=== PATIENT | male | born 1930 | race Caucasian/White ===

== ENCOUNTER 2018-11-24 15:40 | Inpatient (IN) | payer MEDICARE ==
[2018-11-24] MEDS ORDERED: HEPARIN SODIUM,PORCINE 5,000 UNIT/ML 1 ML VIAL IV ONE (18:55)
[2018-11-24] MEDS ORDERED: HEPARIN SODIUM,PORCINE 5,000 UNIT/ML 1 ML VIAL IV PRN (18:55)
[2018-11-24] MEDS ORDERED: hydrALAZINE HCL 20 MG/ML 1 ML VIAL IVP STA (18:56)
[2018-11-24] MEDS: HEPARIN SOD,PORK IN 0.45% NACL 25,000 UNIT in 0.45% NACL 1 250ML.BAG IV SCH (19:17)
[2018-11-24 19:31] LABS: Basophils % (A) 1 %; Eosinophils # (A) 0.2 k/uL (0-0.7); Eosinophils % (A) 3 %; HCT 46.8 % (39.0-53.0); HGB 14.4 gm/dL (13.0-17.5); Hypochromasia Slight; Lymphocytes # (A) 1.6 k/uL (1.0-4.8); Lymphocytes % (A) 22 %; MCH 28.1 pg (25.0-35.0); MCHC 30.8 g/dL (31.0-37.0); MCV 91.1 fL (80.0-100.0); Mean Platelet Volume 8.5; Monocytes # (A) 0.5 k/uL (0-1.0); Monocytes % (A) 7 %; Neutrophils # (A) 4.7 k/uL (1.3-7.7); Neutrophils % (A) 65 %; Platelet Count 197 k/uL (150-450); RBC 5.13 m/uL (4.30-5.90); RDW 13.8 % (11.5-15.5); WBC 7.2 k/uL (3.8-10.6)
[2018-11-24 19:46] LABS: ALT 24 U/L (21-72); AST 26 U/L (17-59); African American GFR (CKD) >90 (>60 ml/min/1.73 sqM); Albumin 3.5 g/dL (3.5-5.0); Alkaline Phosphatase 116 U/L (38-126); Anion Gap 6 mmol/L; Blood Urea Nitrogen 10 mg/dL (9-20); Calcium 8.9 mg/dL (8.4-10.2); Carbon Dioxide 30 mmol/L (22-30); Chloride 103 mmol/L (98-107); Glucose 124 mg/dL (74-99); Potassium 3.9 mmol/L (3.5-5.1); Sodium 139 mmol/L (137-145); Total Bilirubin 0.9 mg/dL (0.2-1.3); Total Protein 6.5 g/dL (6.3-8.2)
[2018-11-24 19:47] LABS: INR 0.9 (<1.2); Partial Thromboplastin Time 67.6 sec (22.0-30.0); Prothrombin Time 10.1 sec (9.0-12.0)
[2018-11-24] MEDS ORDERED: MELATONIN 5 MG TABLET PO PRN (20:56)
[2018-11-24] MEDS: DORZOLAMIDE HCL 2% DROPS 10 ML BTL BOTH EYES SCH (21:06)
[2018-11-24] MEDS: BRIMONIDINE TARTRATE 0.2% DROPS 5 ML BTL BOTH EYES SCH (21:06)
[2018-11-24] MEDS: LATANOPROST 0.005% OPHTH DROPS 2.5 ML BTL BOTH EYES SCH (21:06)
[2018-11-24] MEDS: TIMOLOL 0.5% OPHTH DROPS 5 ML BTL BOTH EYES SCH (21:06)
[2018-11-25 05:54] LABS: Basophils % (A) 0 %; Eosinophils # (A) 0.2 k/uL (0-0.7); Eosinophils % (A) 3 %; HCT 45.4 % (39.0-53.0); HGB 13.9 gm/dL (13.0-17.5); Lymphocytes # (A) 1.6 k/uL (1.0-4.8); Lymphocytes % (A) 23 %; MCH 27.8 pg (25.0-35.0); MCHC 30.7 g/dL (31.0-37.0); MCV 90.6 fL (80.0-100.0); Mean Platelet Volume 7.9; Monocytes # (A) 0.5 k/uL (0-1.0); Monocytes % (A) 8 %; Neutrophils # (A) 4.5 k/uL (1.3-7.7); Neutrophils % (A) 64 %; Platelet Count 181 k/uL (150-450); RBC 5.01 m/uL (4.30-5.90); RDW 13.9 % (11.5-15.5); WBC 7.1 k/uL (3.8-10.6)
[2018-11-25] MEDS ORDERED: PANTOPRAZOLE 40 MG TABLET PO SCH (07:30)
[2018-11-25] MEDS: LISINOPRIL 20 MG TAB PO SCH (08:43)
[2018-11-25] MEDS: ATORVASTATIN 80 MG TAB PO SCH (08:43)
[2018-11-25] MEDS: ASPIRIN 81 MG PO SCH (08:43)
[2018-11-25] MEDS: BRIMONIDINE TARTRATE 0.2% DROPS 5 ML BTL BOTH EYES SCH (08:43)
[2018-11-25] MEDS: DORZOLAMIDE HCL 2% DROPS 10 ML BTL BOTH EYES SCH ×2 (08:44→22:09)
[2018-11-25] MEDS: TIMOLOL 0.5% OPHTH DROPS 5 ML BTL BOTH EYES SCH ×2 (08:44→22:09)
--- NOTE | 2018-11-25 10:36 | P.CRDCN ---
History of Present Illness History of present illness: This is Arelis Mcgee PA-C dictating a consult on this patient The patient was interviewed and examined by me as well as by Dr. Gonzalez Case discussed with Dr. Gonzalez and he agrees with the plan of care IMPRESSION / ASSESSMENT: Presyncope, possibly secondary to elevated blood pressure frequent PACs Hypertension, uncontrolled Dyslipidemia History of CAD Former smoker PLAN: Stop heparin He was started on lisinopril 40 mg daily, monitor blood pressure and make guillaume es as needed Continue aspirin and atorvastatin Check TSH HPI Patient is a 88-year-old male with past medical history of hypertension, dyslipidemia and CAD who was transferred here from [facility]. He presented to [facility] with presyncope. Patient states he was at home sitting in his chair trying to put his eyedrops when he suddenly felt dizzy as if he was going to pass out. He felt as if he was spinning. Denies any vision changes, palpitations, chest pain, shortness of breath. He did not pass out. He has felt dizzy and weak in his legs for the last few months but it never made him feel like he was going to pass out before this episode. Presentation to the hospital his blood pressure was elevated at 173/103. He was treated with hydralazine. His head CT was negative aside from age-related atrophy. EKG showed sinus rhythm with frequent PACs. He was thought to be atrial fibrillation with RVR so he was transferred here and started on heparin. EKGs and rhythm strips reviewed, no evidence for A. fib was seen. Today he denies any further episodes of dizziness, denies shortness of breath, chest pain, or palpitations. He continues to feel weak when he tries to stand. He also has a productive cough ROS: No fevers, felt "chills" a few days ago Positive for productive cough no nausea, vomiting or diarrhea, no hematuria, dysuria, no strokes or seizures, no skin lesions. EXAMINATION: Patient is afebrile, pulse 69, blood pressure 154/72, oxygen saturation 97% on 2 L nasal cannula On exam he is sitting up at the side of the bed, no acute distress Lungs are diminished bilaterally, no wheezing, rhonchi, or crackles appreciated His heart sounds are distant, regular, no murmurs appreciated No elevated JVD or carotid bruits appreciated No lower extremity edema REVIEW OF LABS, ECG & MEDICAL DATA WBC 7.1, hemoglobin 13.9, potassium 3.9, creatinine 0.73, BUN 10, magnesium 2.0, troponin negative EKG reveals sinus rhythm with frequent PACs Past Medical History Past Medical History: Hyperlipidemia, Hypertension Additional Past Medical History / Comment(s): cataract removal History of Any Multi-Drug Resistant Organisms: None Reported Past Surgical History: Heart Catheterization With Stent Past Anesthesia/Blood Transfusion Reactions: No Reported Reaction Date of Last Stent Placement:: 2003 Past Psychological History: No Psychological Hx Reported Smoking Status: Former smoker Past Alcohol Use History: None Reported Past Drug Use History: None Reported Medications and Allergies Home Medications Medication Instructions Recorded Confirmed Type Aspirin EC [Ecotrin Low Dose] 81 mg PO DAILY 11/24/18 11/24/18 History Atorvastatin [Lipitor] 40 mg PO DAILY 11/24/18 11/24/18 History Brimonidine Tartrate [Alphagan P 1 drops BOTH EYES BID 11/24/18 11/24/18 History 0.1% Ophth Soln] Dorzolamide/Timolol/Pf 1 drop BOTH EYES BID 11/24/18 11/24/18 History [Dorzolamide-Timolol 2%-0.5%] Enalapril Maleate [Vasotec] 10 mg PO BID 11/24/18 11/24/18 History Latanoprost/Pf [Latanoprost 0.005% 1 drop BOTH EYES HS 11/24/18 11/24/18 History Eye Drop] Omeprazole 20 mg PO DAILY 11/24/18 11/24/18 History Allergies Allergy/AdvReac Type Severity Reaction Status Date / Time simvastatin AdvReac MUSCLE PAIN Verified 11/24/18 18:26 Physical Exam Vitals: Vital Signs Temp Pulse Resp BP Pulse Ox 11/25/18 04:00 97.6 F 69 18 154/72 97 11/24/18 23:11 81 18 11/24/18 23:09 98.0 F 81 18 144/75 98 11/24/18 20:00 64 18 11/24/18 19:53 98.3 F 64 18 145/67 98 11/24/18 19:24 175/81 11/24/18 18:57 79 20 204/95 94 L Intake and Output 11/24/18 11/25/18 11/25/18 22:59 06:59 14:59 Intake Total 80 Output Total 1650 Balance -1650 80 Intake: IV 80 0.9 80 Output: Urine 1350 Straight 500 Post Void Residual 300 Other: Voiding Method Urinal Urinal # Voids 1 # Bowel Movements 1 Weight 76 kg 77 kg Results 11/25/18 05:34 11/24/18 19:10 Cardiac Enzymes 11/24/18 Range/Units 19:10 AST 26 (17-59) U/L Coagulation 11/24/18 11/25/18 Range/Units 19:10 05:34 PT 10.1 (9.0-12.0) sec APTT 67.6 H 62.3 H (22.0-30.0) sec CBC 11/24/18 11/25/18 Range/Units 19:10 05:34 WBC 7.2 7.1 (3.8-10.6) k/uL RBC 5.13 5.01 (4.30-5.90) m/uL Hgb 14.4 13.9 (13.0-17.5) gm/dL Hct 46.8 45.4 (39.0-53.0) % Plt Count 197 181 (150-450) k/uL Comprehensive Metabolic Panel 11/24/18 Range/Units 19:10 Sodium 139 (137-145) mmol/L Potassium 3.9 (3.5-5.1) mmol/L Chloride 103 (98-107) mmol/L Carbon Dioxide 30 (22-30) mmol/L BUN 10 (9-20) mg/dL Creatinine 0.73 (0.66-1.25) mg/dL Glucose 124 H (74-99) mg/dL Calcium 8.9 (8.4-10.2) mg/dL AST 26 (17-59) U/L ALT 24 (21-72) U/L Alkaline Phosphatase 116 (38-126) U/L Total Protein 6.5 (6.3-8.2) g/dL Albumin 3.5 (3.5-5.0) g/dL Current Medications Generic Name Dose Route Start Last Admin Trade Name Freq PRN Reason Stop Dose Admin Aspirin 81 mg 11/25/18 09:00 Aspirin PO DAILY [facility] Atorvastatin Calcium 40 mg 11/25/18 09:00 Lipitor PO DAILY [facility] Brimonidine Tartrate 1 drops 11/24/18 21:00 11/24/18 21:06 Alphagan P 0.2% Ophth Soln BOTH EYES Not Given BID JOLIE Dorzolamide HCl 1 drops 11/24/18 21:00 11/24/18 21:06 Trusopt BOTH EYES Not Given BID JOLIE Heparin Sodium (Porcine) 0 unit 11/24/18 18:55 Heparin IV PER PROTOCOL PRN Low PTT Protocol Heparin Sodium/Sodium Chloride 250 mls @ 9.12 mls/hr 11/24/18 19:00 11/24/18 19:17 25,000 unit/ Sodium Chloride IV 12 units/kg/hr .Q24H JOLIE 9.12 mls/hr Administration Protocol 12 UNITS/KG/HR Latanoprost 1 drops 11/24/18 21:00 11/24/18 21:06 Xalatan 0.005% BOTH EYES Not Given HS JOLIE Lisinopril 40 mg 11/25/18 09:00 Zestril PO DAILY JOLIE Melatonin 5 mg 11/24/18 20:56 11/24/18 22:48 Melatonin PO 5 mg HS PRN Administration Insomnia Pantoprazole Sodium 40 mg 11/25/18 07:30 11/25/18 06:19 Protonix PO 40 mg DAILY@0730 JOLIE Administration Timolol Maleate 1 drops 11/24/18 21:00 11/24/18 21:06 Timoptic BOTH EYES Not Given BID JOLIE Intake and Output 11/24/18 11/25/18 11/25/18 22:59 06:59 14:59 Intake Total 80 Output Total 1650 Balance -1650 80 Intake: IV 80 0.9 80 Output: Urine 1350 Straight 500 Post Void Residual 300 Other: Voiding Method Urinal Urinal # Voids 1 # Bowel Movements 1 Weight 76 kg 77 kg 11/25/18 05:34 11/24/18 19:10
--- NOTE | 2018-11-25 10:58 | P.HPIM ---
History of Present Illness Chief Complaint: Lightheadedness and dizziness This very pleasant 88-year-old gentleman who was transferred from [facility] with presyncope. Patient the time examination was having vomiting. He said that he initially went in to [facility] for the syncope. He said that he was sitting and trying to put eyedrops in his eyes when he leaned back he suddenly felt dizzy as he was going to pass out. He said that he was not able to get up and was feeling extremely weak. When he tried to get up he was feeling dizzy again. He just went to [facility] for further evaluation and management. Patient did not complain of any chest pain or racing heart, no cough no shortness of breath he does not complain of any abdominal pain, no diarrhea constipation. Patient says that he's been having constant episodes at home where he cannot swallow certain kinds of foods and then he chokes. He says that he sometimes feels that the food is stuck in his throat. He has not had any EGDs or any colonoscopies or any imaging for this purpose. He says that he's feeling weak for some time now. [facility] he had a computed tomography scan done which was negative. Apparently over there he was thought to have A. fib with RVR and so he was started on heparin and transferred over here. Review of Systems All systems: negative Past Medical History Past Medical History: Hyperlipidemia, Hypertension Additional Past Medical History / Comment(s): cataract removal History of Any Multi-Drug Resistant Organisms: None Reported Past Surgical History: Heart Catheterization With Stent Past Anesthesia/Blood Transfusion Reactions: No Reported Reaction Date of Last Stent Placement:: 2003 Past Psychological History: No Psychological Hx Reported Smoking Status: Former smoker Past Alcohol Use History: None Reported Past Drug Use History: None Reported Medications and Allergies Home Medications Medication Instructions Recorded Confirmed Type Aspirin EC [Ecotrin Low Dose] 81 mg PO DAILY 11/24/18 11/24/18 History Atorvastatin [Lipitor] 40 mg PO DAILY 11/24/18 11/24/18 History Brimonidine Tartrate [Alphagan P 1 drops BOTH EYES BID 11/24/18 11/24/18 History 0.1% Ophth Soln] Dorzolamide/Timolol/Pf 1 drop BOTH EYES BID 11/24/18 11/24/18 History [Dorzolamide-Timolol 2%-0.5%] Enalapril Maleate [Vasotec] 10 mg PO BID 11/24/18 11/24/18 History Latanoprost/Pf [Latanoprost 0.005% 1 drop BOTH EYES HS 11/24/18 11/24/18 History Eye Drop] Omeprazole 20 mg PO DAILY 11/24/18 11/24/18 History Allergies Allergy/AdvReac Type Severity Reaction Status Date / Time simvastatin AdvReac MUSCLE PAIN Verified 11/24/18 18:26 Physical Exam Vitals: Vital Signs Temp Pulse Resp BP Pulse Ox 11/25/18 08:00 98.4 F 72 16 143/65 95 11/25/18 04:00 97.6 F 69 18 154/72 97 11/24/18 23:11 81 18 11/24/18 23:09 98.0 F 81 18 144/75 98 11/24/18 20:00 64 18 11/24/18 19:53 98.3 F 64 18 145/67 98 11/24/18 19:24 175/81 11/24/18 18:57 79 20 204/95 94 L Intake and Output 11/24/18 11/25/18 11/25/18 22:59 06:59 14:59 Intake Total 80 Output Total 1650 Balance -1650 80 Intake: IV 80 0.9 80 Output: Urine 1350 Straight 500 Post Void Residual 300 Other: Voiding Method Urinal Urinal Urinal # Voids 1 0 # Bowel Movements 1 Weight 76 kg 77 kg On exam, alert and oriented x3. HEENT: Conjunctivae normal. eyes normal. NECK: No JVD. No thyroid enlargement. No LNs CARDIOVASCULAR: S1-S2 positive RESPIRATION: Patient is having some coarse breath sounds ABDOMEN: Soft, nontender . No guarding. no masses palpable. No ascites, No hepatosplenomegaly.Bowel sounds heard. LEGS: No edema. no swelling NERVOUS SYSTEM: Cranial N 2-12 grossly normal. Moves all 4 limbs. No focal def icits. No sensory deficit. No signs of cerebellar dysfucntion. Skin: no ulcer no rash Results CBC & Chem 7: 11/25/18 05:34 11/24/18 19:10 Labs: Abnormal Lab Results - Last 24 Hours (Table) 11/24/18 11/24/18 11/24/18 Range/Units 19:10 19:10 19:10 MCHC 30.8 L (31.0-37.0) g/dL APTT 67.6 H (22.0-30.0) sec Glucose 124 H (74-99) mg/dL 11/25/18 11/25/18 Range/Units 05:34 05:34 MCHC 30.7 L (31.0-37.0) g/dL APTT 62.3 H (22.0-30.0) sec Glucose (74-99) mg/dL Thrombosis Risk Factor Assmnt - Choose All That Apply Any of the Below Risk Factors Present?: No Other Risk Factors: Yes Each Risk Factor Represents 3 Points: Age 75 years or older Thrombosis Risk Factor Assessment Total Risk Factor Score: 3 Thrombosis Risk Factor Assessment Level: Moderate Risk Assessment and Plan Assessment: - Presyncope need to rule out the cause - A. fib ruled out patient having sinus rhythm with frequent PACs - Constant choking and inability to swallow certain solid food. Need to rule out obstruction in the esophagus - Hypertension - Hyperlipidemia - History of CAD Plan - Patient is admitted to selective floor with telemetry - Appreciated cardiology recommendations. He was started on lisinopril which will continue - We'll consult neurology as the patient says that he still feeling dizzy when he gets up and walks. He computed tomography scan done at the other facility was negative. We'll order for ultrasound carotids and echocardiogram - We'll order for PT OT consult- - Also will consult gastroenterology to evaluate for possible esophageal obstruction - We'll resume the patient's home medications - DVT and GI prophylaxis - We'll order for lab work in the morning - Expected length of stay is more than 2 midnights - Patient is full code Time with Patient: Greater than 30
--- NOTE | 2018-11-25 11:40 | P.CONS ---
History of Present Illness - Reason for Consult Consult date: 11/25/18 Dysphagia Requesting physician: Kannan Delgadillo - Chief Complaint Weakness dizziness dysphagia - History of Present Illness 88-year-old gentleman transferred from outside facility with weakness dizziness and dysphagia. Past medical history of hypertension dyslipidemia CAD. No history of EGD. Intermittent nausea vomiting denies hematemesis hematochezia melena. Reports frequent episodes lately with certain thicker foods increased choking sensation of food being stuck in the upper portion of his throat. Patient had some breakfast potatoes which stuck in his throat this morning causes nausea vomiting. Review of Systems Constitutional: Denies fever, chills, sweats, weight gain, or loss. HEENT: Negative for migraines, blurred vision or loss, earaches, drainage, tinnitus, oral mucosal lesions, dysphagia, or odynophagia. Cardiac: Negative for chest pain, arrhythmias, or palpitation. Respiratory: Negative for shortness of breath, hemoptysis, cough, or sputum production. Gastrointestinal: See HPI for pertinent findings. Genitourinary: Negative for hematuria, urgency, frequency, polyuria, dysuria, or penile discharge. Musculoskeletal: Negative for muscle aches, swelling, arthritis, and arthralgias. Neurologic: Negative for stroke or TIA. Endocrine: Negative for thyroid problems. Skin: Negative for rash or itching. Psychiatric: Negative history for depression and anxiety Past Medical History Past Medical History: Hyperlipidemia, Hypertension Additional Past Medical History / Comment(s): cataract removal History of Any Multi-Drug Resistant Organisms: None Reported Past Surgical History: Heart Catheterization With Stent Past Anesthesia/Blood Transfusion Reactions: No Reported Reaction Date of Last Stent Placement:: 2003 Past Psychological History: No Psychological Hx Reported Smoking Status: Former smoker Past Alcohol Use History: None Reported Past Drug Use History: None Reported Medications and Allergies Home Medications Medication Instructions Recorded Confirmed Type Aspirin EC [Ecotrin Low Dose] 81 mg PO DAILY 11/24/18 11/24/18 History Atorvastatin [Lipitor] 40 mg PO DAILY 11/24/18 11/24/18 History Brimonidine Tartrate [Alphagan P 1 drops BOTH EYES BID 11/24/18 11/24/18 History 0.1% Ophth Soln] Dorzolamide/Timolol/Pf 1 drop BOTH EYES BID 11/24/18 11/24/18 History [Dorzolamide-Timolol 2%-0.5%] Enalapril Maleate [Vasotec] 10 mg PO BID 11/24/18 11/24/18 History Latanoprost/Pf [Latanoprost 0.005% 1 drop BOTH EYES HS 11/24/18 11/24/18 History Eye Drop] Omeprazole 20 mg PO DAILY 11/24/18 11/24/18 History Allergies Allergy/AdvReac Type Severity Reaction Status Date / Time simvastatin AdvReac MUSCLE PAIN Verified 11/24/18 18:26 Physical Exam Vitals: Vital Signs Temp Pulse Resp BP Pulse Ox 11/25/18 08:00 98.4 F 72 16 143/65 95 11/25/18 04:00 97.6 F 69 18 154/72 97 11/24/18 23:11 81 18 11/24/18 23:09 98.0 F 81 18 144/75 98 11/24/18 20:00 64 18 11/24/18 19:53 98.3 F 64 18 145/67 98 11/24/18 19:24 175/81 11/24/18 18:57 79 20 204/95 94 L Intake and Output 11/24/18 11/25/18 11/25/18 22:59 06:59 14:59 Intake Total 80 Output Total 1650 Balance -1650 80 Intake: IV 80 0.9 80 Output: Urine 1350 Straight 500 Post Void Residual 300 Other: Voiding Method Urinal Urinal Urinal # Voids 1 0 # Bowel Movements 1 Weight 76 kg 77 kg General appearance: The patient is alert, oriented, in no acute distress. HET: Head is normocephalic and atraumatic. Pupils are equal and reactive. Oropharynx is clear without lesions. Neck: Supple without lymphadenopathy. Trachea midline. Heart: S1 S2. Regular rate and rhythm. Lungs: No crackles or wheezes are heard. Abdomen: Soft, nontender, nondistended with bowel sounds. No peritoneal signs. No palpable organomegaly or masses. Extremities: Normal skin color and turgor. No cyanosis, rash, ulceration, clubbing, or edema. Radial and pedal pulses are 2/4 bilaterally. Neurological: No focal deficits. Strength and sensation are grossly intact. Results CBC & Chem 7: 11/25/18 05:34 11/24/18 19:10 Labs: Abnormal Lab Results - Last 24 Hours (Table) 11/24/18 11/24/18 11/24/18 Range/Units 19:10 19:10 19:10 MCHC 30.8 L (31.0-37.0) g/dL APTT 67.6 H (22.0-30.0) sec Glucose 124 H (74-99) mg/dL 11/25/18 11/25/18 Range/Units 05:34 05:34 MCHC 30.7 L (31.0-37.0) g/dL APTT 62.3 H (22.0-30.0) sec Glucose (74-99) mg/dL Assessment and Plan (1) Dysphagia Narrative/Plan: 88-year-old gentleman transferred from outside facility with reports of presyncopal episode dizziness chronic dysphagia at home with thicker foods sentences. Patient choked on records potatoes this morning felt a sensation of food being stuck in the upper esophagus possible underlying stricture disease possible presbyesophagus possible Zenker's diverticulum possible malignancy cannot be excluded. Current Visit: Yes Status: Acute Code(s): R13.10 - DYSPHAGIA, UNSPECIFIED SNOMED Code(s): 91152176 Plan: 1. Esophagram will review possible inpatient EGD based on esophagram results. Nothing by mouth except medications. Protonix 40 mg daily. We'll follow closely with you. Thank you for this kind referral and the opportunity to participate in the care of your patient. This consultation was discussed with Dr. Herrmann. The impression and plan of care have been directed as dictated.
--- NOTE | 2018-11-25 11:58 | CDI ---
Documentation Clarification Form Date: 11/25/2018 11:50:35 AM From: Charley RoblesHARRIET, CCDS Admit Date: 11/24/2018 6:30:00 PM Patient Name: Jasbir Vazquez Visit Number: [id number] Discharge Date: ATTENTION: The Clinical Documentation Specialists (CDI) and [facility] Coding Staff appreciate your assistance in clarifying documentation. Please respond to the clarification below the line at the bottom and electronically sign. The CDI & [facility] Coding staff will review the response and follow-up if needed. Please note: Queries are made part of the Legal Health Record. If you have any questions, please contact the author of this message via ITS. Dr. Silviano Gonzalez: Per the Cardiology consult: "Hypertension, uncontrolled". History/Risk Factors: Hypertension, Hyperlipidemia, CAD with stent, Former smoker. Clinical Indicators: Presented with syncopal or pre-syncopal episodes & choking episodes on certain foods. VS: P 79 - 64; BP 204/95^ - 175/81 - 145/67 Home Rx: Vasotec, Lipitor, Aspirin Treatment: IV Heparin, IV Apresoline, po Aspirin In your professional opinion, can you please clarify the type of hypertension? Hypertensive Emergency Hypertensive Urgency Hypertension due to other condition, please specify: Other, please specify: Unable to determine (Last Revision: August 2017) Hypertensive urgency see progress note from today MTDD
--- NOTE | 2018-11-25 13:01 | FL ---
EXAMINATION TYPE: FL esophagus cervic/pharynx DATE OF EXAM: 11/25/2018 HISTORY: Dysphagia COMPARISON: NONE TECHNIQUE: A single contrast esophagram is performed utilizing barium. FINDINGS: Patient was given high density barium to drink. 68 seconds fluoroscopy time, 10 images obtained. Exam somewhat limited by patient's ability to cooperate. The esophagus is distended, there are luminal filling defects likely due to retained secretions and p ossibly fluid. The distal esophagus shows a markedly tapered appearance with only minimal contrast co ursing towards the stomach. 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 Consider direct visualization, CT chest.
--- NOTE | 2018-11-25 15:49 | US ---
EXAMINATION TYPE: US carotid duplex BILAT DATE OF EXAM: 11/25/2018 COMPARISON: NONE CLINICAL HISTORY: PRESYNCOPE. Syncope EXAM MEASUREMENTS: RIGHT: Peak Systolic Velocity (PSV) cm/sec ----- Right CCA: 80.1 ----- Right ICA: 85.6 ----- Right ECA: 132.3 ICA/CCA ratio: 1.1 RIGHT: End Diastole cm/sec ----- Right CCA: 12.0 ----- Right ICA: 14.2 ----- Right ECA: 0.0 LEFT: Peak Systolic Velocity (PSV) cm/sec ----- Left CCA: 77.9 ----- Left ICA: 92.2 ----- Left ECA: 115.1 ICA/CCA ratio: 1.2 LEFT: End Diastole cm/sec ----- Left CCA: 14.2 ----- Left ICA: 25.2 ----- Left ECA: 6.3 VERTEBRALS (direction of flow): Right Vertebral: Antegrade Left Vertebral: Antegrade Rhythm: Arrhythmia No significant stenosis seen Grayscale, color Doppler, spectral Doppler imaging performed of the carotid arteries. Waveform analys is does not show significant stenosis of the proximal internal carotid arteries. IMPRESSION: No hemodynamic significant stenosis of the proximal internal carotid arteries bilaterall y by Doppler criteria, an indirect measurement of carotid stenosis. Cardiac arrhythmia noted incident ally.
[2018-11-25] MEDS ORDERED: SUCCINYLCHOLINE CHLORIDE 100 MG/5 ML SYR IV ONE (16:45)
[2018-11-25] MEDS ORDERED: fentaNYL (PF) 50 MCG/ML 2 ML AMP ONE (16:45)
[2018-11-25] MEDS ORDERED: PROPOFOL 10 MG/ML 20 ML VIAL IV ONE (16:45)
[2018-11-25] MEDS ORDERED: GLUCAGON 1 MG/ML VIAL ONE (16:45)
[2018-11-25] MEDS ORDERED: GLYCOPYRROLATE 0.2 MG/ML 2 ML VIAL ONE (16:45)
[2018-11-25] MEDS ORDERED: PHENYLEPHRINE-0.9% NACL SYG 1 MG/10 ML SYRINGE ONE (16:45)
[2018-11-25] MEDS ORDERED: IV FLUID CONTINUATION 300 ML IV ONE (16:57)
[2018-11-25] MEDS ORDERED: LACTATED RINGERS 1,000 ML IV ONE (18:17)
--- NOTE | 2018-11-25 19:23 | P.PCN ---
Date of Procedure: 11/25/18 Description of Procedure: BRIEF HISTORY: 88-year-old gentleman transferred from outside facility with weakness dizziness and dysphagia. Past medical history of hypertension dyslipidemia CAD. No history of EGD. Intermittent nausea vomiting denies hematemesis hematochezia melena. Reports frequent episodes lately with certain thicker foods increased choking sensation of food being stuck in the upper portion of his throat. Patient had some breakfast potatoes which stuck in his throat this morning causes nausea vomiting. PROCEDURE PERFORMED: Esophagogastroduodenoscopy. PREOPERATIVE DIAGNOSIS: Esophageal foreign body, food impaction. ESTIMATED BLOOD LOSS: Minimal. IV sedation per anesthesia. PROCEDURE: After informed consent was obtained, the patient was brought into the endoscopy unit. IV sedation was administered by Anesthesia with the patient intubated to ensure protection of his airway. Initially the Olympus GIF-140 video endoscope was inserted into the mouth. Esophagus intubated without any difficulty. The esophagus was diffusely dilated with a large amount of food noted from 15 cm from the incisors to 40 cm from the incisor. Lower esophageal sphincter was hypertrophied and contracted. Multiple techniques were attempted to try and both push the food into the stomach but it was extremely difficult to traverse the LES. Glucagon and paralytic used with no success. Retrieving food was also unsuccessful with graspers, [place] due to the volume of food present in his esophagus. Findings are highly suspicious for achalasia. The procedure was initially reported with an NG tube placed into the patient's esophagus at the end of the procedure. The patient tolerated the procedure well. IMPRESSION: 1. Esophageal foreign body with food coated throughout the patient's esophagus. Diffusely dilated esophagus and hypertrophied contracted LES are highly suspicious of achalasia. RECOMMENDATIONS: The findings of this examination were discussed with the ICU team. At this time would recommend patient remain on mechanical ventilation. NG tube has been left in the esophagus with instructions not to advance. This can be left on low intermittent suction. Consideration for repeat EGD to be followed by manometry if clinical condition improve versus transferred to a tertiary referral center for definitive treatment.
[2018-11-25 19:55] LABS: Glucose,Whole Blood 141 mg/dL (75-99)
[2018-11-25 20:25] LABS: ABG Base Excess 0.2 mmol/L; ABG HCO3 26 mmol/L (21-25); ABG Oxygen Saturation 96.5 % (94-97); ABG PCO2 50 mmHg (35-45); ABG PH 7.33 (7.35-7.45); ABG PO2 87 mmHg (83-108); ABG TCO2 28 mmol/L (19-24); Allen Test Performed? Yes
[2018-11-25] MEDS ORDERED: NALOXONE 0.4 MG/ML 1 ML VIAL IV PRN (20:37)
[2018-11-25] MEDS: PROPOFOL 1,000 MG in EMPTY BAG 1 BAG IV SCH ×2 (21:03→23:55)
[2018-11-25] MEDS: HEPARIN SOD,PORK IN 0.45% NACL 25,000 UNIT in 0.45% NACL 1 250ML.BAG IV SCH (21:04)
[2018-11-25] MEDS: LACTATED RINGERS 1,000 ML IV SCH (21:04)
--- NOTE | 2018-11-25 21:53 | XR ---
EXAMINATION: XR chest 1V portable DATE AND TIME: 11/25/2018 9:39 PM CLINICAL INDICATION: PHH; confirm ET tube and NG placement TECHNIQUE: AP upright portable technique COMPARISON: None FINDINGS: ET tube tip superimposed over the mid trachea. NG tube is present, coursing over the expected course of the thoracic esophagus and with its tip proj ecting inferior to the caudal edge of the film. EKG leads noted. No pneumothorax. The lungs are clear and well expanded. Cardiomediastinal silhouette and bones and soft tissues are unremarkable. IMPRESSION: NO ACUTE PROCESS.
[2018-11-25] MEDS: LATANOPROST 0.005% OPHTH DROPS 2.5 ML BTL BOTH EYES SCH (22:09)
[2018-11-25] MEDS: CHLORHEXIDINE GLUCONATE 15 ML CUP MUCOUS MEM SCH (22:09)
[2018-11-25] MEDS: IPRATROPIUM-ALBUTEROL 3 ML NEB INHALATION SCH (23:15)
[2018-11-26] MEDS: IPRATROPIUM-ALBUTEROL 3 ML NEB INHALATION SCH ×6 (03:00→23:09)
[2018-11-26] MEDS: LACTATED RINGERS 1,000 ML IV SCH (03:30)
[2018-11-26] MEDS: BRIMONIDINE TARTRATE 0.2% DROPS 5 ML BTL BOTH EYES SCH ×3 (03:34→20:26)
[2018-11-26] MEDS: PROPOFOL 1,000 MG in EMPTY BAG 1 BAG IV SCH ×2 (03:52→09:02)
[2018-11-26] MEDS ORDERED: SODIUM CHLORIDE 0.9% 1,000 ML IV ONE ×2 (04:37→05:50)
[2018-11-26 04:43] LABS: ABG Base Excess -2.8 mmol/L; ABG HCO3 23 mmol/L (21-25); ABG PCO2 40 mmHg (35-45); ABG PH 7.36 (7.35-7.45); ABG PO2 87 mmHg (83-108); ABG TCO2 24 mmol/L (19-24); Allen Test Performed? Yes
[2018-11-26 06:01] LABS: Basophils % (A) 0 %; Eosinophils % (A) 0 %; HCT 40.6 % (39.0-53.0); HGB 12.5 gm/dL (13.0-17.5); Hypochromasia Moderate; Lymphocytes % (A) 9 %; MCH 27.9 pg (25.0-35.0); MCHC 30.7 g/dL (31.0-37.0); Mean Platelet Volume 8.4; Monocytes # (A) 0.9 k/uL (0-1.0); Monocytes % (A) 7 %; Neutrophils # (A) 9.9 k/uL (1.3-7.7); Neutrophils % (A) 83 %; Platelet Count 162 k/uL (150-450); RBC 4.46 m/uL (4.30-5.90); RDW 14.7 % (11.5-15.5)
[2018-11-26 06:14] LABS: Glucose,Whole Blood 93 mg/dL (75-99)
[2018-11-26 06:14] LABS: Calcium 7.9 mg/dL (8.4-10.2); Magnesium 1.7 mg/dL (1.6-2.3); Phosphorus 4.2 mg/dL (2.5-4.5); Potassium 3.5 mmol/L (3.5-5.1)
[2018-11-26] MEDS ORDERED: Potassium Replacement Protocol 1 EACH MISC MISCELLANE PRN (06:52)
[2018-11-26] MEDS: POTASSIUM CHLORIDE 10 MEQ in WATER FOR INJECTION 1 100ML.BAG IVPB SCH ×4 (07:14→12:55)
--- NOTE | 2018-11-26 08:41 | XR ---
EXAMINATION TYPE: XR chest 1V portable DATE OF EXAM: 11/26/2018 COMPARISON: 11/25/2018 INDICATION: Tube placement TECHNIQUE: Single frontal view of the chest is obtained. FINDINGS: The heart size is normal. The pulmonary vasculature is normal. Mild right infrahilar infiltrate may be developing. Correlate for atelectasis. Endotracheal tube tip is above the hussain. Nasogastric tube extends to the distal esophagus. This cecilia uld be advanced approximately 14 cm. IMPRESSION: 1. Nasogastric tube tip is in the distal esophagus. Advancing 14 cm would provide more typical positi oning. 2. Endotracheal tube above the hussain. 3. Mild developing right infrahilar atelectasis
[2018-11-26] MEDS: DORZOLAMIDE HCL 2% DROPS 10 ML BTL BOTH EYES SCH ×2 (10:23→20:25)
[2018-11-26] MEDS: TIMOLOL 0.5% OPHTH DROPS 5 ML BTL BOTH EYES SCH ×2 (10:24→20:26)
[2018-11-26] MEDS: PANTOPRAZOLE 40 MG/10 ML VIAL IV SCH (10:44)
--- NOTE | 2018-11-26 11:28 | ECHOF ---
Referral Reason:PRESYNCOPE MEASUREMENTS -------- HEIGHT: 172.7 cm WEIGHT: 76.7 kg BP: 143/65 RVIDd: 3.7 cm (< 3.3) IVSd: 1.5 cm (0.6 - 1.1) LVIDd: 3.7 cm (3.9 - 5.3) LVPWd: 1.9 cm (0.6 - 1.1) IVSs: 2.0 cm LVIDs: 2.0 cm LVPWs: 1.8 cm LAESV Index (A-L): 25.70 ml/m Ao Diam: 3.8 cm (2.0 - 3.7) AV Cusp: 2.3 cm (1.5 - 2.6) LA Diam: 2.6 cm (2.7 - 3.8) MV EXCURSION: 14.924 mm (> 18.000) MV EF SLOPE: 43 mm/s (70 - 150) EPSS: 0.7 cm MV E Ortiz: 0.61 m/s MV DecT: 243 ms MV A Ortiz: 0.88 m/s MV E/A Ratio: 0.70 AV maxP.24 mmHg AV meanP.67 mmHg AR PHT: 461 ms FINDINGS -------- Sinus rhythm. This was a technically difficult study with suboptimal parasternal views. The left ventricular size is normal. There is moderate concentric left ventricular hypertrophy. O verall left ventricular systolic function is normal with, an EF between 60 - 65 %. The diastolic fi lling pattern indicates impaired relaxation 13.44. The right ventricle is mild to moderately enlarged. Normal LA size by volume 22+/-6 ml/m2. The right atrial size is normal. Interatrial and interventricular septum intact. The aortic valve is trileaflet and appears structurally normal. Trace to mild aortic regurgitation. Mild mitral annular calcification present. There is trace mitral regurgitation. Trace tricuspid regurgitation present. There is no evidence of pulmonary hypertension. The pulmonic valve was not well visualized. The aortic root size is normal. IVC Not well visulized. There is no pericardial effusion. CONCLUSIONS -------- 1. Sinus rhythm. 2. This was a technically difficult study with suboptimal parasternal views. 3. The left ventricular size is normal. 4. There is moderate concentric left ventricular hypertrophy. 5. Overall left ventricular systolic function is normal with, an EF between 60 - 65 %. 6. The diastolic filling pattern indicates impaired relaxation 13.44.. 7. The right ventricle is mild to moderately enlarged. 8. Normal LA size by volume 22+/-6 ml/m2. 9. The right atrial size is normal. 10. Interatrial and interventricular septum intact. 11. The aortic valve is trileaflet and appears structurally normal. 12. Trace to mild aortic regurgitation. 13. Mild mitral annular calcification present. 14. There is trace mitral regurgitation. 15. Trace tricuspid regurgitation present. 16. There is no evidence of pulmonary hypertension. 17. The pulmonic valve was not well visualized. 18. The aortic root size is normal. 19. IVC Not well visulized. 20. There is no pericardial effusion. GROOMING SALON MANAGER: Tamara Eason RDCS
--- NOTE | 2018-11-26 11:59 | P.CNNES ---
History of Present Illness Consult date: 11/26/18 Reason for Consult: Presyncope Chief complaint: Presyncope History of Present Illness: REFERRING PHYSICIAN: Dr. Delgadillo HISTORY OF PRESENT ILLNESS: Thank you for allowing me to evaluate Mr. Jasbir Vazquez . [Mr. Jasbir Vazquez is an 88-year-old man admitted for presyncope, consulting neurology for "dizziness when he gets up and walks." Patient at this time is in the ICU, intubated and sedated. Patient's and daughter at bedside for corroborating information. states that on Saturday patient woke up and he sat in his usual chair lifted his head to put his eyedrops that he always does in the morning he was when he first put his eyedrops in the right eye but when he was putting them in the left eye he started complaining of dizziness. Breakfast was ready, so called for the patient, but patient said he couldn't walk to the kitchen because of the dizziness, so brought his breakfast to his chair. Patient had no problem finishing his breakfast. During this time, patient did not have any rhythmic activity, did not lose consciousness, have any urinary or bowel incontinence, tongue biting, or having any blank stares. called EMS, and patient was able to talk to EMS. Patient was initially admitted to the floors for presyncopal workup, but yesterday morning, after his breakfast, patient food was stuck in his esophagus, for which patient underwent a procedure. However, his esophagus cannot be completely cleared out of his food products, so it was recommended that patient undergo intubation and sedation until he undergoes another procedure for complete removal of food products. denies any recent sickness, fevers, sneezing, falling, vision changes, focal weakness, numbness or tingling the patient reported to her. Endorses coughing and some chills. Upon admission, cardiology was consulted. Initially mentioned patient possibly had his presyncopal episode secondary to elevated blood pressure. However, on telemetry monitoring, it appears that there was an arrhythmia detected. PAST MEDICAL HISTORY: Hyperlipidemia, hypertension, prostate cancer PAST SURGICAL HISTORY: Cataract removal, heart catheterization with stent HOME MEDICATIONS: Latanoprost, timolol, enalapril 10 mg twice a day, atorvastatin 40 mg daily, aspirin 81 daily, omeprazole 20 mg daily SOCIAL HISTORY: Previous smoker, no drug or alcohol abuse FAMILY HISTORY: No known seizure, neurological condition, developmental delay history. REVIEW OF SYSTEMS: As above PHYSICAL EXAMINATION: VITAL SIGNS: Temperature O2 sat 100 on mechanical ventilation GEN.: Intubated and sedated. Patient opens his eyes to verbal and light tactile stimulation. Does not follow commands. HEENT: NCAT, sclera without icterus NECK: Supple SKIN AND EXTREMITIES: Warm to touch, no edema Neuro: MENTAL STATUS: Intubated and sedated. Patient is on propofol drip. Patient opens eyes to verbal and light tactile stimulation. CRANIAL NERVES II THROUGH XII: II: [Pupils are equal and reactive to light symmetrically. Blinks to threat. No gross facial asymmetry. MOTOR: Withdraws to pain in all 4 extremities equally. SENSORY: Withdraws and grimaces to pain in all 4 extremities equally. REFLEXES: 2+ throughout. Toes are downgoing. COORDINATION: Deferred as patient intubated and sedated GAIT: Deferred as patient intubated and sedated DIAGNOSTIC TESTING: Laboratory: WBC 12.0 hemoglobin 12.5 platelets 162 sodium 139 potassium 3.5 chloride 108 CO2 23 BUN 16 creatinine 1.01 calcium 7.9 phosphorous 4.2 Imaging: Echocardiogram 11/25/2018: Sinus rhythm. Technically difficult study. LV size normal. Moderate concentric LV hypertrophy. EF 60-65%. RV is mild to moderately enlarged. Normal LV size. Trace to mild aortic regurgitation. Trace mitral regurgitation. Trace tricuspid regurgitation. Carotid Dopplers 11/25/2018: No hemodynamic significant stenosis of the proximal ICA bilaterally by Doppler criteria. Cardiac arrhythmia noted incidentally. ASSESSMENT and PLAN: Mr. Jasbir Vazquez is an 88-year-old man admitted for presyncope, consulting neurology for "dizziness when he gets up and walks." Family denies any symptoms that may be indicative of seizures. Patient most likely had his presyncopal episode due to his cardiac arrhythmia observed during this admission. No imaging available at this time. No additional diagnostic studies recommended at this time. Neurology will sign off Past Medical History Past Medical History: Hyperlipidemia, Hypertension Additional Past Medical History / Comment(s): cataract removal History of Any Multi-Drug Resistant Organisms: None Reported Past Surgical History: Heart Catheterization With Stent Past Anesthesia/Blood Transfusion Reactions: No Reported Reaction Date of Last Stent Placement:: 2003 Past Psychological History: No Psychological Hx Reported Smoking Status: Former smoker Past Alcohol Use History: None Reported Past Drug Use History: None Reported Medications and Allergies Home Medications Medication Instructions Recorded Confirmed Type Aspirin EC [Ecotrin Low Dose] 81 mg PO DAILY 11/24/18 11/24/18 History Atorvastatin [Lipitor] 40 mg PO DAILY 11/24/18 11/24/18 History Brimonidine Tartrate [Alphagan P 1 drops BOTH EYES BID 11/24/18 11/24/18 History 0.1% Ophth Soln] Dorzolamide/Timolol/Pf 1 drop BOTH EYES BID 11/24/18 11/24/18 History [Dorzolamide-Timolol 2%-0.5%] Enalapril Maleate [Vasotec] 10 mg PO BID 11/24/18 11/24/18 History Latanoprost/Pf [Latanoprost 0.005% 1 drop BOTH EYES HS 11/24/18 11/24/18 History Eye Drop] Omeprazole 20 mg PO DAILY 11/24/18 11/24/18 History Allergies Allergy/AdvReac Type Severity Reaction Status Date / Time simvastatin AdvReac MUSCLE PAIN Verified 11/24/18 18:26 Physical Examination - Vital Signs Vital Signs: Vital Signs Temp Pulse Pulse Pulse Resp BP BP 11/26/18 08:15 110 H 11/26/18 08:03 112 H 11/26/18 07:00 78 16 126/48 11/26/18 06:30 73 16 108/46 11/26/18 06:00 66 16 120/53 11/26/18 05:30 60 16 104/41 11/26/18 05:00 75 16 102/51 11/26/18 04:30 102 H 16 128/85 11/26/18 04:00 98.8 F 103 H 16 129/66 11/26/18 03:30 80 16 121/71 11/26/18 03:24 91 11/26/18 03:00 61 16 111/48 11/26/18 02:30 70 16 102/49 11/26/18 02:00 77 16 121/55 11/26/18 01:30 87 16 110/55 11/26/18 01:00 82 13 120/64 11/26/18 00:30 74 16 120/56 11/26/18 00:00 98.4 F 70 16 123/67 11/25/18 23:52 76 11 L 123/67 07/16/19 23:30 79 16 107/56 11/25/18 23:29 76 11/25/18 23:15 75 11/25/18 23:00 98.3 F 68 89 16 114/69 114/69 11/25/18 22:30 80 21 118/65 11/25/18 22:00 76 16 104/89 11/25/18 21:30 76 16 125/66 11/25/18 21:00 73 15 136/92 11/25/18 20:30 73 19 138/69 11/25/18 20:00 98.1 F 75 10 L 126/87 11/25/18 15:42 97.9 F 76 16 172/84 11/25/18 13:40 16 172/84 11/25/18 12:00 76 14 152/77 Pulse Ox 11/26/18 08:15 11/26/18 08:03 11/26/18 07:00 100 11/26/18 06:30 99 11/26/18 06:00 99 11/26/18 05:30 99 11/26/18 05:00 99 11/26/18 04:30 99 11/26/18 04:00 98 11/26/18 03:30 100 11/26/18 03:24 11/26/18 03:00 100 11/26/18 02:30 98 11/26/18 02:00 99 11/26/18 01:30 99 11/26/18 01:00 97 11/26/18 00:30 97 11/26/18 00:00 97 11/25/18 23:52 96 11/25/18 23:30 100 11/25/18 23:29 11/25/18 23:15 11/25/18 23:00 100 11/25/18 22:30 90 L 11/25/18 22:00 97 11/25/18 21:30 98 11/25/18 21:00 97 11/25/18 20:30 94 L 11/25/18 20:00 88 L 11/25/18 15:42 96 11/25/18 13:40 11/25/18 12:00 95 Intake and Output 11/25/18 11/26/18 11/26/18 22:59 06:59 14:59 Intake Total 516.17 2944.183 201.252 Output Total 130 185 60 Balance 386.17 2759.183 141.252 Intake: IV 500 2800 100 Lactated Ringers 1,000 ml 200 800 100 @ 100 mls/hr IV .Q10H [facility] Rx#:[id number] Sodium Chloride 0.9% 1, 2000 000 ml @ 999 mls/hr IV . Q1H1M [facility] Rx#:[id number] Intake, IV Titration 16.17 144.183 101.252 Amount Propofol 1,000 mg In 16.17 144.183 101.252 Empty Bag 1 bag @ Titrate IV .Q0M [facility] Rx#: [id number] Output: Urine 130 185 60 Other: Voiding Method Indwelling Catheter Indwelling Catheter Weight 83.7 kg Results - Laboratory Findings CBC and BMP: 11/26/18 05:41 11/26/18 05:41 Abnormal Lab Findings: Abnormal Labs 11/24/18 11/24/18 11/24/18 19:10 19:10 19:10 WBC Hgb MCHC 30.8 L Neutrophils # APTT 67.6 H ABG pH ABG pCO2 ABG HCO3 ABG Total CO2 Chloride Glucose 124 H POC Glucose (mg/dL) Calcium 11/25/18 11/25/18 11/25/18 05:34 05:34 19:41 WBC Hgb MCHC 30.7 L Neutrophils # APTT 62.3 H ABG pH ABG pCO2 ABG HCO3 ABG Total CO2 Chloride Glucose POC Glucose (mg/dL) 141 H Calcium 11/25/18 11/26/18 11/26/18 20:23 05:41 05:41 WBC 12.0 H Hgb 12.5 L MCHC 30.7 L Neutrophils # 9.9 H APTT ABG pH 7.33 L ABG pCO2 50 H ABG HCO3 26 H ABG Total CO2 28 H Chloride 108 H Glucose POC Glucose (mg/dL) Calcium 7.9 L
--- NOTE | 2018-11-26 12:01 | P.PN ---
Subjective Progress Note Date: 11/26/18 Principal diagnosis: Dysphagia 88-year-old male status post EGD evaluation yesterday for dysphagia with evidence of copious amounts of food debris throughout the esophagus raising the clinical suspicion of possible achalasia. Patient is presently alert intubated. Nasogastric tube inserted and left in the distal esophagus low intermittent suction with instructions not to advance. No reports of hematemesis hematochezia or melena. Family at bedside. White count 12. Hemoglobin 12.3. Objective - Vital Signs Vital signs: Vital Signs Temp 98.8 F 11/26/18 04:00 Pulse 110 H 11/26/18 08:15 Resp 16 11/26/18 07:00 BP 126/48 11/26/18 07:00 Pulse Ox 100 11/26/18 07:00 Intake & Output 11/25/18 11/26/18 11/26/18 18:59 06:59 18:59 Intake Total 460 3160.353 201.252 Output Total 400 315 60 Balance 60 2845.353 141.252 Weight 83.7 kg Intake: IV 460 3000 100 0.9 160 Lactated Ringers 1,000 ml 1000 100 @ 100 mls/hr IV .Q10H [facility] Rx#:[id number] Sodium Chloride 0.9% 1, 2000 000 ml @ 999 mls/hr IV . Q1H1M [facility] Rx#:[id number] Intake, IV Titration 160.353 101.252 Amount Propofol 1,000 mg In 160.353 101.252 Empty Bag 1 bag @ Titrate IV .Q0M [facility] Rx#: [id number] Output: Urine 400 315 60 Other: Voiding Method Urinal Indwelling Catheter # Voids 1 - Exam General appearance: The patient is alert, intubated in no acute distress. HET: Head is normocephalic and atraumatic. Pupils are equal and reactive. Oropharynx is clear without lesions. NG tube with minimal output. Neck: Supple without lymphadenopathy. Trachea midline. Heart: S1 S2. Regular rate and rhythm. Lungs: No crackles or wheezes are heard. Abdomen: Soft, nontender, nondistended with bowel sounds. No peritoneal signs. No palpable organomegaly or masses. Extremities: Normal skin color and turgor. No cyanosis, rash, ulceration, clubbing, or edema. Radial and pedal pulses are 2/4 bilaterally. Neurological: No focal deficits. Strength and sensation are grossly intact. - Labs CBC & Chem 7: 11/26/18 05:41 11/26/18 05:41 Labs: Abnormal Lab Results - Last 24 Hours (Table) 11/25/18 11/25/18 11/26/18 Range/Units 19:41 20:23 05:41 WBC (3.8-10.6) k/uL Hgb (13.0-17.5) gm/dL MCHC (31.0-37.0) g/dL Neutrophils # (1.3-7.7) k/uL ABG pH 7.33 L (7.35-7.45) ABG pCO2 50 H (35-45) mmHg ABG HCO3 26 H (21-25) mmol/L ABG Total CO2 28 H (19-24) mmol/L Chloride 108 H (98-107) mmol/L POC Glucose (mg/dL) 141 H (75-99) mg/dL Calcium 7.9 L (8.4-10.2) mg/dL 11/26/18 Range/Units 05:41 WBC 12.0 H (3.8-10.6) k/uL Hgb 12.5 L (13.0-17.5) gm/dL MCHC 30.7 L (31.0-37.0) g/dL Neutrophils # 9.9 H (1.3-7.7) k/uL ABG pH (7.35-7.45) ABG pCO2 (35-45) mmHg ABG HCO3 (21-25) mmol/L ABG Total CO2 (19-24) mmol/L Chloride (98-107) mmol/L POC Glucose (mg/dL) (75-99) mg/dL Calcium (8.4-10.2) mg/dL Assessment and Plan (1) Dysphagia Narrative/Plan: Status post EGD evidence of copious amounts of food retention throughout the entire esophagus raising this clinical suspicion of possible achalasia Current Visit: Yes Status: Acute Code(s): R13.10 - DYSPHAGIA, UNSPECIFIED SNOMED Code(s): 16860900 Plan: 1. Minimal food debris was removed yesterday NG tube was placed and left in the distal esophagus with low intermittent suction. Plans to proceed with repeat EGD early a.m. with attempts to remove additional food debris. If food debris could not be removed will discuss with attending transfer to tertiary center for further evaluation and management. Extubation per stone carriage operator. Continue Protonix 40 g IV daily. Did not advance NG tube. The loft worker has discussed the risks, benefits and alternative ther apies for the above-mentioned procedure and for both sedation/analgesia as well as necessary blood product administration, if indicated, as they pertain to this patient. The patient has indicated understanding and acceptance of the risks and procedures discussed. Assessment and plan a care discussed with Dr. Herrmann
[2018-11-26 12:08] LABS: Glucose,Whole Blood 77 mg/dL (75-99)
--- NOTE | 2018-11-26 12:11 | CONS ---
CONSULTATION DATE OF CONSULTATION: 11/26/2018 This is an 88-year-old male who apparently presented to the emergency room. He was transferred down from [facility]. The patient was seen here by our hospital service. He apparently went initially there because of dizziness and lightheadedness. The patient was apparently also having some vomiting. The patient also apparently had a syncopal episode at [facility]. The patient apparently was transferred here for further evaluation and management. Apparently also he admits to frequent episodes of choking on foods. He apparently ate some eggs and potatoes and apparently the food was stuck in his esophagus and he was referred to Gastroenterology for possible treatment. The patient apparently was seen by Dr. Arriaza yesterday. He tried a number of maneuvers to try to relieve the patient of the obstruction. Apparently, it was unsuccessful. He had endoscopy and glucagon administration among other things. Anyway, in the process of trying to get him extricated from the foreign body in the esophagus included intubation and mechanical ventilation. Currently, he is on the volume assist-control mode rate of 16, tidal volume 500, FiO2 of 40%, PEEP of 5. Blood gases show pO2 of 87, pCO2 of 40 and a pH of 7.36. The patient is on propofol 40 mcg/kg per minute and lactated Ringer's at 100 mL/hour. Today is postop day #1. . PAST MEDICAL HISTORY: Includes apparently hyperlipidemia and hypertension as well as cataracts. He also has a history of CAD. He has had a previous catheterization with stent placement. No additional surgical history is reported. SOCIAL HISTORY: Positive for previous tobacco use. No alcohol use or illicit drug use. HOME MEDICATIONS: Include aspirin, Lipitor, eye drops, and omeprazole. He is also on Vasotec. ALLERGIES: Are SIMVASTATIN. FAMILY HISTORY: Noncontributory. Apparently his parents were healthy. REVIEW OF SYSTEMS: Cannot currently be obtained. The patient was on the ventilator at the time of this consultation. His review of systems when he came into the hospital included initially lightheadedness and dizziness. He also apparently had an episode of syncope or presyncope. The patient also was apparently feeling very weak and apparently was complaining of choking on food with difficulty in swallowing. This is what necessitated the GI consultation. PHYSICAL EXAMINATION: Current vital signs temperature 98.8, heart rate 78, respiratory rate 16, blood pressure 126/48 mean 74, saturations are 100% on 40%, 5 of PEEP. Appears in no acute distress. Currently sedated on propofol 40 mcg/kg per minute. HEENT: Examination is grossly unremarkable. There is an orally placed endotracheal tube and NG tube. NECK: Supple. Full range of motion. No adenopathy. CARDIOVASCULAR: Examination reveals a regular rhythm and rate. S1, S2 normal. No murmur. Heart sounds are distant. Heart rate about 80 beats per minute. LUNGS: Reveal mostly clear breath sounds. No wheezes or rhonchi. A few scattered crackles. Breath sounds equal bilaterally. ABDOMEN: Soft. Bowel sounds are heard. EXTREMITIES: Intact. No cyanosis, clubbing, or edema. SKIN: Without rash. NEUROLOGIC: Examination could not be adequately assessed as the patient is currently sedated. A chest x-ray done on November 26 shows the nasogastric tube is in the distal esophagus. Endotracheal tube is above the tracheal hussain. There is some atelectasis at the bases. LABS: Reviewed. White count 12, hemoglobin 12.5, hematocrit 40.6, platelet count 162,000. The most recent blood gas shows a pO2 of 87, pCO2 49 and pH is 7.36. Sodium 139, potassium 3.5, chloride is 108, CO2 is 23, BUN and creatinine were 16 and 1.01, calcium 7.9. We did speak to Dr. Arriaza, the letter of credit clerk. The doctor is not planning any additional procedures on this patient. Medications are reviewed. Currently, he is on aspirin, Lipitor, chlorhexidine, eye drops, updrafts, lisinopril, melatonin, Narcan, Protonix, potassium replacement, and propofol. ASSESSMENT: 1. Esophageal foreign body, which was unable to be dislodged via a number of maneuvers including endoscopy and glucagon administration as well as flushing. 2. Status post intubation and mechanical ventilation for the endoscopic procedure yesterday. 3. History of hypertension. 4. History of hyperlipidemia. 5. History of cataracts. 6. History of coronary artery disease with previous stent placement. 7. Previous history of tobacco use. PLAN: Because the gastroenterologists are not planning any additional procedures, will plan on going in to give the patient a daily interruption of sedation and a spontaneous breathing trial to see if we can get him extubated. The patient will be n.p.o. Will run thru the medications and DC all unnecessary medications. Prognosis is guarded. Will continue to follow. MMODL / IJN: [id number] /
[2018-11-26 18:17] LABS: Glucose,Whole Blood 113 mg/dL (75-99)
[2018-11-26] MEDS: HEPARIN SOD,PORK IN 0.45% NACL 25,000 UNIT in 0.45% NACL 1 250ML.BAG IV SCH (19:44)
[2018-11-26] MEDS: LATANOPROST 0.005% OPHTH DROPS 2.5 ML BTL BOTH EYES SCH (20:25)
--- NOTE | 2018-11-26 21:53 | P.PN ---
Subjective This very pleasant 88-year-old gentleman who was transferred from [facility] with presyncope. Patient the time examination was having vomiting. He said that he initially went in to [facility] for the syncope. He said that he was sitting and trying to put eyedrops in his eyes when he leaned back he suddenly felt dizzy as he was going to pass out. He said that he was not able to get up and was feeling extremely weak. When he tried to get up he was feeling dizzy again. He just went to [facility] for further evaluation and management. Patient did not complain of any chest pain or racing heart, no cough no shortness of breath he does not complain of any abdominal pain, no diarrhea constipation. Patient says that he's been having constant episodes at home where he cannot swallow certain kinds of foods and then he chokes. He says that he sometimes feels that the food is stuck in his throat. He has not had any EGDs or any colonoscopies or any imaging for this purpose. He says that he's feeling weak for some time now. [facility] he had a computed tomography scan done which was negative. Apparently over there he was thought to have A. fib with RVR and so he was started on heparin and transferred over here. 11/26/2018 Pt was seen by Gi yesterday. Egd showed esophagal foreign body with foof coated throughout esophagousand diffusely dialted esophagus and hypertrophied contracted LES suspisoius for aclasia. S/P procedure pt was transferred to icu intubatedand with ng tube hooked to low intermittent suction. Pt was eventally extubated this afternoon. He is ronchrous and coughing still. no chest pain, no racing heart. No ABD apin, no vomiting. Objective - Vital Signs Vital signs: Vital Signs Temp 98 F 11/26/18 20:00 Pulse 109 H 11/26/18 21:00 Resp 28 H 11/26/18 21:00 BP 144/64 11/26/18 21:00 Pulse Ox 96 11/26/18 21:00 Intake & Output 11/26/18 11/26/18 11/27/18 06:59 18:59 06:59 Intake Total 3160.353 1301.252 300 Output Total 315 1115 115 Balance 2845.353 186.252 185 Weight 83.7 kg Intake: IV 3000 1200 300 Lactated Ringers 1,000 ml 1000 1200 300 @ 100 mls/hr IV .Q10H [facility] Rx#:[id number] Sodium Chloride 0.9% 1, 2000 000 ml @ 999 mls/hr IV . Q1H1M [facility] Rx#:[id number] Intake, IV Titration 160.353 101.252 Amount Propofol 1,000 mg In 160.353 101.252 Empty Bag 1 bag @ Titrate IV .Q0M [facility] Rx#: [id number] Output: Urine 315 1115 115 Other: Voiding Method Indwelling Catheter Indwelling Catheter Indwelling Catheter - Exam On exam, alert and oriented x3. HEENT: Conjunctivae normal. eyes normal. NECK: No JVD. No thyroid enlargement. No LNs CARDIOVASCULAR: S1-S2 positive RESPIRATION: Patient is having some coarse breath sounds ABDOMEN: Soft, nontender . No guarding. no masses palpable. No ascites, No hepatosplenomegaly.Bowel sounds heard. LEGS: No edema. no swelling NERVOUS SYSTEM: Cranial N 2-12 grossly normal. Moves all 4 limbs. No focal deficits. No sensory deficit. No signs of cerebellar dysfucntion. Skin: no ulcer no rash - Labs CBC & Chem 7: 11/26/18 05:41 11/26/18 05:41 Labs: Abnormal Lab Results - Last 24 Hours (Table) 11/26/18 11/26/18 11/26/18 Range/Units 05:41 05:41 18:15 WBC 12.0 H (3.8-10.6) k/uL Hgb 12.5 L (13.0-17.5) gm/dL MCHC 30.7 L (31.0-37.0) g/dL Neutrophils # 9.9 H (1.3-7.7) k/uL Chloride 108 H (98-107) mmol/L POC Glucose (mg/dL) 113 H (75-99) mg/dL Calcium 7.9 L (8.4-10.2) mg/dL Assessment and Plan Assessment: - Presyncope need to rule out the cause - A. fib ruled out patient having sinus rhythm with frequent PACs - Constant choking and inability to swallow certain solid food. Need to rule out obstruction in the esophagus - Hypertension - Hyperlipidemia - History of CAD Plan 11/25/2018 - Patient is admitted to selective floor with telemetry - Appreciated cardiology recommendations. He was started on lisinopril which will continue - We'll consult neurology as the patient says that he still feeling dizzy when he gets up and walks. He computed tomography scan done at the other facility was negative. We'll order for ultrasound carotids and echocardiogram - We'll order for PT OT consult- - Also will consult gastroenterology to evaluate for possible esophageal obstruction - We'll resume the patient's home medications - DVT and GI prophylaxis - We'll order for lab work in the morning - Expected length of stay is more than 2 midnights - Patient is full code 11/26/2018 - Will have a repeat EGD tomorrow again to remove the remaining food impaction - High risk of aspiration. Will keep his bed inclined - Continue rest of the medical care - Breathing treatments PRN - wILL F/U
[2018-11-26 23:34] LABS: Glucose,Whole Blood 114 mg/dL (75-99)
[2018-11-27] MEDS: LACTATED RINGERS 1,000 ML IV SCH ×3 (02:45→14:01)
[2018-11-27] MEDS: IPRATROPIUM-ALBUTEROL 3 ML NEB INHALATION SCH ×5 (03:22→19:43)
[2018-11-27 05:01] LABS: Basophils % (A) 0 %; Eosinophils % (A) 0 %; HCT 39.6 % (39.0-53.0); HGB 12.5 gm/dL (13.0-17.5); Hypochromasia Moderate; Lymphocytes # (A) 1.1 k/uL (1.0-4.8); Lymphocytes % (A) 13 %; MCH 28.7 pg (25.0-35.0); MCHC 31.7 g/dL (31.0-37.0); MCV 90.6 fL (80.0-100.0); Mean Platelet Volume 9.2; Monocytes # (A) 0.4 k/uL (0-1.0); Monocytes % (A) 5 %; Neutrophils # (A) 6.4 k/uL (1.3-7.7); Neutrophils % (A) 80 %; Platelet Count 131 k/uL (150-450); RBC 4.37 m/uL (4.30-5.90); RDW 14.4 % (11.5-15.5)
[2018-11-27 05:11] LABS: Calcium 7.9 mg/dL (8.4-10.2); Potassium 3.9 mmol/L (3.5-5.1)
[2018-11-27 06:28] LABS: Glucose,Whole Blood 123 mg/dL (75-99)
[2018-11-27] MEDS ORDERED: LIDOCAINE 1% INJ 10MG/ML (20 ML MDV) ONE (07:07)
[2018-11-27] MEDS ORDERED: PROPOFOL 10 MG/ML 20 ML VIAL IV ONE (07:07)
[2018-11-27] MEDS ORDERED: IV FLUID CONTINUATION 1,000 ML IV ONE (07:10)
--- NOTE | 2018-11-27 07:10 | XR ---
EXAMINATION TYPE: XR chest 1V portable DATE OF EXAM: 11/27/2018 CLINICAL HISTORY: Difficulty breathing progress study. TECHNIQUE: Single AP portable semiupright view of the chest is obtained. COMPARISON: Chest x-ray from one day earlier FINDINGS: Interval extubation with removal of endotracheal tube. New coiling of orogastric tube term inating at hussain level projecting cranially on current study likely mid esophageal level. Persistent right basilar opacity. Worsening left basilar opacity. Upper lungs are clear without pneumothorax. C ardiac silhouette size is stable and upper limits of normal. Multilevel spurring in the spine is seen . Degenerative changes bilateral glenohumeral joints is noted. IMPRESSION: Interval extubation. New coiled orogastric tube. Worsening bibasilar acute infiltrate and /or atelectasis. Results of new coiled orogastric tube communicated to mail processing clerk at time of dictation. Nurse was not a vailable.
--- NOTE | 2018-11-27 07:39 | P.PCN ---
Date of Procedure: 11/27/18 Description of Procedure: BRIEF HISTORY: 88-year-old gentleman transferred from outside facility with weakness dizziness and dysphagia. Past medical history of hypertension dyslipidemia CAD. No history of EGD. Intermittent nausea vomiting denies hematemesis hematochezia melena. Reports frequent episodes lately with certain thicker foods increased choking sensation of food being stuck in the upper portion of his throat. Patient had some breakfast potatoes which stuck in his throat this morning causes nausea vomiting. The patient was taken for EGD with findings of a dilated esophagus filled from 15 cm from the incisors to 40 cm from the incisors with retained food and a contracted lower esophageal sphincter/GE junction. Suspicion was for achalasia and NG tube was placed in the esophagus to suction with the patient left nothing by mouth and intubated. He subsequently has been extubated and continued to have nothing per mouth. PROCEDURE PERFORMED: Esophagogastroduodenoscopy with biopsy. PREOPERATIVE DIAGNOSIS: Esophageal dysphagia. ESTIMATED BLOOD LOSS: Minimal. IV sedation per anesthesia. PROCEDURE: After informed consent was obtained, the patient was brought into the endoscopy unit. IV sedation was administered by Anesthesia under continuous monitoring. Initially the Olympus GIF-190 video endoscope was inserted into the mouth. Esophagus intubated without any difficulty. It was gradually advanced into the stomach and duodenum and carefully examined. The bulb and the second part of the duodenum appeared normal, with biopsies taken. The scope at this time was withdrawn to the stomach, adequately insufflated with air, and upon careful examination, mucosa of the antrum, body, cardia and the fundus appeared normal except for some mild scattered erythema in the antrum and body suggestive of mild gastritis with biopsies taken. The scope was then withdrawn into the esophagus. The GE junction was located at 40 cm from the incisors with biopsies taken. Previously seen retained food was no longer in the esophagus which was again noted to be dilated with some tapering and tortuosity in the distal esophagus just proximal to the GE junction. Mid esophageal biopsies were taken. The patient tolerated the procedure well. IMPRESSION: 1. Dilated esophagus, no longer containing previously seen food, with narrowed distal esophagus. 2. Mild gastritis antrum body, biopsied. 3. Duodenal biopsies, GE junction biopsies, but esophageal biopsies. RECOMMENDATIONS: The findings of this examination were discussed with the patient and his family. Okay for liquid diet with nutritional supplementation ordered. Await pathology from biopsies. Patient will need manometry for further evaluation, likely in the outpatient setting.
[2018-11-27] MEDS: POTASSIUM CHLORIDE 10 MEQ in WATER FOR INJECTION 1 100ML.BAG IVPB SCH ×2 (08:22→09:36)
[2018-11-27] MEDS: PANTOPRAZOLE 40 MG/10 ML VIAL IV SCH (08:23)
[2018-11-27] MEDS: BRIMONIDINE TARTRATE 0.2% DROPS 5 ML BTL BOTH EYES SCH ×2 (08:31→21:12)
[2018-11-27] MEDS: TIMOLOL 0.5% OPHTH DROPS 5 ML BTL BOTH EYES SCH ×2 (08:31→21:12)
[2018-11-27] MEDS: DORZOLAMIDE HCL 2% DROPS 10 ML BTL BOTH EYES SCH ×2 (08:32→21:13)
--- NOTE | 2018-11-27 10:21 | PN ---
PROGRESS NOTE DATE OF SERVICE: 11/27/2018 This is an 88-year-old male who was initially admitted to the ER at [facility]. He apparently was sent down here for further evaluation. He complained initially of dizziness and lightheadedness. He also apparently was having some vomiting and may have aspirated. As it turns out, he apparently was eating some eggs and potatoes and apparently it got stuck in his esophagus. The patient was transferred down here for GI evaluation. He ended up being intubated and mechanically ventilated while he had an EGD. Apparently Dr. Herrmann tried a number of different maneuvers to free him of this obstruction in his esophagus. Yesterday, we were able to extubate him. This morning he had an EGD which revealed that there was no further food or obstruction in his esophagus and he had passed whatever it was that was blocking his esophagus. I presumed the eggs and potatoes. Dr. Herrmann tried a number of things including flushing the area with saline as well as IV glucagon and manual extrication of the obstruction. Nonetheless, the patient is doing relatively well today. He had his EGD this morning. It did show an esophagus that was otherwise normal. Anyway, the patient is currently receiving O2 of 5 L. He is getting LR 100 mL an hour. He has been given a clear liquid diet. We have instituted aspiration precautions including head of bed elevated at all times and the patient could be transferred out to the general medical floor. GI people need to speak to the patient about the possibility of a feeding tube in the future. Apparently, Dr. Herrmann mentioned the possibility of an esophageal manometry as an outpatient. PAST MEDICAL HISTORY: Included hyperlipidemia, hypertension, cataracts, CAD and stent placement. PHYSICAL EXAMINATION: Current vital signs are stable. Temperature is 99, heart rate 100, respiratory rate 16, blood pressure 138/71 mean 93, saturations are 95%. Appears in no acute distress. HEENT: Examination is grossly unremarkable. Mucous membranes are moist. Nasal O2 noted. NECK: Supple. Full range of motion. No adenopathy or thyromegaly. Neck veins are flat. CARDIOVASCULAR: Examination reveals regular rhythm and rate. Heart rate 98 beats per minute. S1, S2 normal. No murmur. Heart sounds are distant. LUNGS: Reveal some coarse inspiratory and expiratory rhonchi. No wheezes or crackles. His adventitious lung sounds are more prominent on forced maneuver and when he coughs. ABDOMEN: Soft. Bowel sounds are heard. EXTREMITIES: Intact. No cyanosis, clubbing, or edema. SKIN: Without rash. NEUROLOGIC: Examination is nonfocal. Microbiology is negative. LABS: Reviewed. White count 8, hemoglobin 12.5, hematocrit 39.6, platelet count 131,000. Sodium and potassium normal, chloride is 108, CO2 is 26, anion gap is 6. BUN and creatinine were 13 and 0.94. A chest x-ray in my opinion shows some bibasilar infiltrates or atelectasis. Medications are reviewed and adjusted accordingly. ASSESSMENT: 1. Esophageal foreign body, which apparently has passed spontaneously. 2. Status post intubation and mechanical ventilation with extubation successfully yesterday on November 26. The patient was intubated for the procedure. 3. History of hypertension. 4. Hyperlipidemia. 5. History of cataracts. 6. History of coronary artery disease with previous stent placement. 7. Previous history of tobacco use. 8. Rule out achalasia/esophageal dysmotility. PLAN: The patient is doing well. The patient will continue with deep breathing, coughing, clearing of secretions and use of incentive spirometer. The patient has been given a clear liquid diet. He will continue on breathing treatments. Head of bed elevated at all times and we instituted aspiration precautions. The patient could be transferred to the general medical floor. The EGD was done today by Dr. Herrmann and showed no abnormality. MMODL / IJN: [id number] /
[2018-11-27 12:17] LABS: Glucose,Whole Blood 117 mg/dL (75-99)
--- NOTE | 2018-11-27 13:00 | P.PN ---
Subjective This is Arelis Mcgee PA-C dictating a progress note on this patient The patient was interviewed and examined by me as well as by Dr. Gonzalez Case discussed with Dr. Gonzalez and he agrees with the plan of care IMPRESSION / ASSESSMENT: esophageal obstruction s/p EGD, NG tube placed, patient remains intubated Presyncope, possibly related to elevated blood pressure Frequent PACs, short runs of atrial tachycardia, no atrial fibrillation noted on monitor Essential hypertension, blood pressure stable not currently recieving any antihypertensives Dyslipidemia CAD PLAN: continue to monitor blood pressure, can restart home antihypertensive medication if needed Continue to monitor telemetry for any arrhythmias HPI/interval history Patient was transferred here from [facility] for further evaluation after presenting with presyncope. He was initially thought to be in atrial fibrillation however EKG and rhythm strips revealed sinus mechanism with frequent PACs. Yesterday the patient was found to have esophageal obstruction and underwent endoscopy to attempt to free the obstruction which was unsuccessful. The patient was transferred to the ICU and remains sedated and intubated. EXAMINATION Temperature 98.9F, pulse 97, respirations 16, blood pressure 130/64, oxygen saturation 99% on mechanical ventilation Patient is sedated and intubated Breath sounds equal bilaterally Heart sounds are distant, slightly irregular, no murmurs appreciated REVIEW OF LABS, ECG WBC 12.0, hemoglobin 12.5, potassium 3.5, BUNs 16, creatinine 1.01 and a TSH within normal limits at 1.1 Carotid Doppler revealed no significant stenosis Echocardiogram revealed normal LV size and function, EF 60-65%, mild concentric LVH, no significant valvular abnormalities Bedside pvc monitor reveals sinus rhythm, frequent PACs, and short runs of atrial tachycardia, no atrial fibrillation noted Objective - Vital Signs Vital signs: Vital Signs Temp 98.9 F 11/26/18 12:00 Pulse 80 11/26/18 13:00 Resp 18 11/26/18 13:00 BP 140/79 11/26/18 13:00 Pulse Ox 98 11/26/18 13:00 Intake & Output 11/25/18 11/26/18 11/26/18 18:59 06:59 18:59 Intake Total 460 3160.353 801.252 Output Total 400 315 560 Balance 60 2845.353 241.252 Weight 83.7 kg Intake: IV 460 3000 700 0.9 160 Lactated Ringers 1,000 ml 1000 700 @ 100 mls/hr IV .Q10H [facility] Rx#:[id number] Sodium Chloride 0.9% 1, 2000 000 ml @ 999 mls/hr IV . Q1H1M [facility] Rx#:[id number] Intake, IV Titration 160.353 101.252 Amount Propofol 1,000 mg In 160.353 101.252 Empty Bag 1 bag @ Titrate IV .Q0M [facility] Rx#: [id number] Output: Urine 400 315 560 Other: Voiding Method Urinal Indwelling Catheter # Voids 1 - Labs CBC & Chem 7: 11/26/18 05:41 11/26/18 05:41 Labs: Abnormal Lab Results - Last 24 Hours (Table) 11/25/18 11/25/18 11/26/18 Range/Units 19:41 20:23 05:41 WBC (3.8-10.6) k/uL Hgb (13.0-17.5) gm/dL MCHC (31.0-37.0) g/dL Neutrophils # (1.3-7.7) k/uL ABG pH 7.33 L (7.35-7.45) ABG pCO2 50 H (35-45) mmHg ABG HCO3 26 H (21-25) mmol/L ABG Total CO2 28 H (19-24) mmol/L Chloride 108 H (98-107) mmol/L POC Glucose (mg/dL) 141 H (75-99) mg/dL Calcium 7.9 L (8.4-10.2) mg/dL 11/26/18 Range/Units 05:41 WBC 12.0 H (3.8-10.6) k/uL Hgb 12.5 L (13.0-17.5) gm/dL MCHC 30.7 L (31.0-37.0) g/dL Neutrophils # 9.9 H (1.3-7.7) k/uL ABG pH (7.35-7.45) ABG pCO2 (35-45) mmHg ABG HCO3 (21-25) mmol/L ABG Total CO2 (19-24) mmol/L Chloride (98-107) mmol/L POC Glucose (mg/dL) (75-99) mg/dL Calcium (8.4-10.2) mg/dL
--- NOTE | 2018-11-27 13:23 | P.PN ---
Subjective This is Arelis Mcgee PA-C dictating a progress note on this patient The patient was interviewed and examined by me as well as by Dr. Gonzalez Case discussed with Dr. Gonzalez and he agrees with the plan of care IMPRESSION / ASSESSMENT: Presyncope, possibly related to elevated blood pressure Esophageal obstruction, status post EGD, on clear liquid diet Hypertension, blood pressure is elevated, oral antihypertensives were stopped due to patient high risk for aspiration Dyslipidemia PLAN: Start low-dose clonidine patch temporarily for blood pressure control since patient is unable to take oral antihypertensives at this time, consider lisinopril and it is safe for him to swallow Continue to monitor telemetry for sustained arrhythmias HPI/interval history Patient is an 88-year-old male who was transferred here from [facility] for further evaluation after presenting with presyncope. His blood pressure was elevated. He was found to have an esophageal obstruction and underwent EGD. An NG tube was placed and he was transferred to the ICU, intubated. He was successfully extubated yesterday. Started on a clear liquid diet. He states he is feeling better today. EXAMINATION Temperature 99.0F, pulse 100, respirations 20, blood pressure 147/86, oxygen saturation 96% on 4 L nasal cannula Patient seen and examined sitting in bed, does not appear to be in any acute distress Lungs with bilateral rhonchi, left sided pleural rub appreciated Heart is tachycardic but regular, no murmurs appreciated REVIEW OF LABS, ECG Telemetry strips reveal short runs of A. tach, no sustained arrhythmias noted WBC 8.0, hemoglobin 12.5, sodium 3.9, BUN 13, creatinine 0.94 Objective - Vital Signs Vital signs: Vital Signs Temp 98.3 F 11/27/18 12:00 Pulse 99 11/27/18 12:00 Resp 28 H 11/27/18 12:00 BP 118/68 11/27/18 12:00 Pulse Ox 96 11/27/18 12:00 Intake & Output 11/26/18 11/27/18 11/27/18 18:59 06:59 18:59 Intake Total 6846.624 4558 500 Output Total 1115 535 200 Balance 186.252 765 300 Weight 86.8 kg Intake: IV 1200 1300 500 Lactated Ringers 1,000 ml 1200 1300 500 @ 100 mls/hr IV .Q10H [facility] Rx#:[id number] Intake, IV Titration 101.252 Amount Propofol 1,000 mg In 101.252 Empty Bag 1 bag @ Titrate IV .Q0M [facility] Rx#: [id number] Output: Urine 1115 535 200 Other: Voiding Method Indwelling Catheter Indwelling Catheter Indwelling Catheter - Labs CBC & Chem 7: 11/27/18 04:45 11/27/18 04:45 Labs: Abnormal Lab Results - Last 24 Hours (Table) 11/26/18 11/26/18 11/27/18 Range/Units 18:15 23:32 04:45 Hgb 12.5 L (13.0-17.5) gm/dL Plt Count 131 L (150-450) k/uL Chloride (98-107) mmol/L Glucose (74-99) mg/dL POC Glucose (mg/dL) 113 H 114 H (75-99) mg/dL Calcium (8.4-10.2) mg/dL 11/27/18 11/27/18 11/27/18 Range/Units 04:45 06:28 12:14 Hgb (13.0-17.5) gm/dL Plt Count (150-450) k/uL Chloride 108 H (98-107) mmol/L Glucose 121 H (74-99) mg/dL POC Glucose (mg/dL) 123 H 117 H (75-99) mg/dL Calcium 7.9 L (8.4-10.2) mg/dL
[2018-11-27] MEDS: CHLORHEXIDINE GLUCONATE 15 ML CUP MUCOUS MEM SCH (13:58)
[2018-11-27] MEDS: ASPIRIN 81 MG PO SCH (14:00)
[2018-11-27] MEDS ORDERED: cloNIDine 0.1 MG/24HR PATCH TRANSDERM SCH (14:00)
[2018-11-27] MEDS: LISINOPRIL 20 MG TAB PO SCH (14:01)
[2018-11-27] MEDS: ATORVASTATIN 80 MG TAB PO SCH (14:01)
[2018-11-27] MEDS: LATANOPROST 0.005% OPHTH DROPS 2.5 ML BTL BOTH EYES SCH (21:13)
[2018-11-28] MEDS: IPRATROPIUM-ALBUTEROL 3 ML NEB INHALATION SCH ×7 (00:23→19:23)
[2018-11-28] MEDS: LACTATED RINGERS 1,000 ML IV SCH ×2 (03:38→08:31)
[2018-11-28] MEDS: DORZOLAMIDE HCL 2% DROPS 10 ML BTL BOTH EYES SCH ×2 (08:31→20:21)
[2018-11-28] MEDS: TIMOLOL 0.5% OPHTH DROPS 5 ML BTL BOTH EYES SCH ×2 (08:32→20:20)
[2018-11-28] MEDS: PANTOPRAZOLE 40 MG/10 ML VIAL IV SCH (08:32)
[2018-11-28] MEDS: BRIMONIDINE TARTRATE 0.2% DROPS 5 ML BTL BOTH EYES SCH ×2 (08:32→20:21)
[2018-11-28 10:28] LABS: Basophils % (A) 0 %; Eosinophils # (A) 0.1 k/uL (0-0.7); Eosinophils % (A) 1 %; HCT 38.8 % (39.0-53.0); Hypochromasia Moderate; Lymphocytes # (A) 0.7 k/uL (1.0-4.8); Lymphocytes % (A) 12 %; MCH 28.6 pg (25.0-35.0); MCHC 30.9 g/dL (31.0-37.0); MCV 92.5 fL (80.0-100.0); Mean Platelet Volume 8.7; Monocytes # (A) 0.4 k/uL (0-1.0); Monocytes % (A) 6 %; Neutrophils # (A) 4.8 k/uL (1.3-7.7); Neutrophils % (A) 79 %; Platelet Count 119 k/uL (150-450); RBC 4.19 m/uL (4.30-5.90); RDW 13.9 % (11.5-15.5); WBC 6.1 k/uL (3.8-10.6)
--- NOTE | 2018-11-28 11:12 | P.PN ---
Subjective Progress Note Date: 11/28/18 Principal diagnosis: Esophageal foreign body This is an 88-year-old gentleman who was originally admitted to [facility] emergency room with complaints of dizziness and lightheadedness with some vomiting and concerns regarding aspiration. He had been eating eggs and potatoes which got stuck in his esophagus. He was transferred here for further evaluation. During EGD procedure he ended up getting intubated and placed on mechanical ventilator. We were following him in the ICU. He is now seen out on the regular medical floor. Sitting up in a chair at the bedside. He is awake and alert in no acute distress. He has a loose nonproductive cough. On a clear liquid diet tolerating that thus far. He is on 4 L nasal cannula to maintain O2 prior saturations in the 90s. White count 6.1. Hemoglobin 12.0. Platelet count 119,000. Objective - Vital Signs Vital signs: Vital Signs Temp 97.7 F 11/28/18 05:00 Pulse 90 11/28/18 11:03 Resp 18 11/28/18 08:00 BP 123/74 11/28/18 05:00 Pulse Ox 96 11/28/18 05:00 Intake & Output 11/27/18 11/28/18 11/28/18 18:59 06:59 18:59 Intake Total 500 450 Output Total 200 Balance 300 450 Intake: IV 500 Lactated Ringers 1,000 ml 500 @ 100 mls/hr IV .Q10H [facility] Rx#:[id number] Oral 450 Output: Urine 200 Other: Voiding Method Indwelling Catheter Bedside Commode # Voids 1 1 # Bowel Movements 0 - Exam GENERAL EXAM: Alert, comfortable in no apparent distress. On 4 L nasal cannula. HEAD: Normocephalic. EYES: Normal reaction of pupils, equal size. NOSE: Clear with pink turbinates. THROAT: No erythema or exudates. NECK: No masses, no JVD. CHEST: No chest wall deformity. LUNGS: Equal air entry with scattered rhonchi and crackles in the bases. CVS: S1 and S2 normal with no audible murmur, regular rhythm. ABDOMEN: No hepatosplenomegaly, normal bowel sounds, no guarding or rigidity. SPINE: No scoliosis or deformity SKIN: No rashes CENTRAL NERVOUS SYSTEM: No focal deficits, tone is normal in all 4 extremities. EXTREMITIES: There is no peripheral edema. No clubbing, no cyanosis. Peripheral pulses are intact. - Labs CBC & Chem 7: 11/28/18 09:54 11/27/18 04:45 Labs: Abnormal Lab Results - Last 24 Hours (Table) 11/27/18 11/28/18 Range/Units 12:14 09:54 RBC 4.19 L (4.30-5.90) m/uL Hgb 12.0 L (13.0-17.5) gm/dL Hct 38.8 L (39.0-53.0) % MCHC 30.9 L (31.0-37.0) g/dL Plt Count 119 L (150-450) k/uL Lymphocytes # 0.7 L (1.0-4.8) k/uL POC Glucose (mg/dL) 117 H (75-99) mg/dL Assessment and Plan Assessment: Assessment: #1 Esophageal foreign body which had passed spontaneously. #2 Status post intubation mechanical ventilation with extubation successfully on 11/26/2018. He was intubated during the EGD. #3 History of hypertension. #4 Hyperlipidemia. #5 Coronary artery disease with previous stent placement. #6 Previous history of tobacco dependence. #7 Rule out achalasia/esophageal dysmotility. On clear liquids. Plan: The patient was seen and evaluated by Dr. Brandt. He is currently stable from the pulmonary standpoint. We will see him on as-needed basis. I, the cosigning physician, performed a history & physical examination of the patient. Lungs sounds few scattered rhonchi, crackles in the bases. Maintaining good O2 saturations in the 90s on 4 L/m per nasal cannula. I discussed the assessment and plan of care with my nurse practitioner, Christine Song. I attest to the above note as dictated by her.
--- NOTE | 2018-11-28 12:29 | P.PN ---
Subjective This is a pleasant 88-year-old male past medical history significant for hypertension, dyslipidemia, coronary artery disease s/p stent placement 2003 and former nicotine dependence. He initially was transferred from [facility] after aspirating food. He underwent EGD he ended up intubated. He has been extubated and is seen today on the medical floor. We have been involved secondary to arrhythmia, found to be atrial tachycardia. Pt is seen and examined sitting up in the chair having liquid breakfast. He denies chest pain, shortness of breath, dizziness or palpitations. He feels like his throat is somewhat sore, worse when swallowing. Blood pressure GENERAL: Well-appearing, well-nourished and in no acute distress. NECK: Supple without JVD or thyromegaly. LUNGS: Faint course rhonchi noted throughout, no wheezes or rales. Respiration equal and unlabored. HEART: Regular rate and rhythm without murmurs, rubs or gallops. S1 and S2 heard. EXTREMITIES: Normal range of motion, no edema. No clubbing or cyanosis. Peripheral pulses intact. ASSESSMENT Presyncope Esophageal obstruction s/p EGD started on liquid diet Hypertension Dyslipidemia Atrial tachycardia, resolved History of coronary artery disease s/p stent placement mid LAD with intinal disease of RCA per cath from 2003 PLAN Resume lisinopril as he is tolerating oral intake. Discontinue clonidine patch. We will continue to follow as needed. Nurse Practitioner note has been reviewed, I agree with a documented findings and plan of care. Patient was seen and examined. Objective - Vital Signs Vital signs: Vital Signs Temp 97.7 F 11/28/18 05:00 Pulse 90 11/28/18 11:14 Resp 18 11/28/18 08:00 BP 123/74 11/28/18 05:00 Pulse Ox 96 11/28/18 05:00 Intake & Output 11/27/18 11/28/18 11/28/18 18:59 06:59 18:59 Intake Total 500 450 Output Total 200 Balance 300 450 Intake: IV 500 Lactated Ringers 1,000 ml 500 @ 100 mls/hr IV .Q10H JOLIE Rx#:[id number] Oral 450 Output: Urine 200 Other: Voiding Method Indwelling Catheter Bedside Commode # Voids 1 1 # Bowel Movements 0 - Labs CBC & Chem 7: 11/28/18 09:54 11/27/18 04:45 Labs: Abnormal Lab Results - Last 24 Hours (Table) 11/28/18 Range/Units 09:54 RBC 4.19 L (4.30-5.90) m/uL Hgb 12.0 L (13.0-17.5) gm/dL Hct 38.8 L (39.0-53.0) % MCHC 30.9 L (31.0-37.0) g/dL Plt Count 119 L (150-450) k/uL Lymphocytes # 0.7 L (1.0-4.8) k/uL
--- NOTE | 2018-11-28 14:48 | P.PN ---
Subjective Progress Note Date: 11/28/18 Principal diagnosis: Dysphagia Feels well. Tolerating clear liquids. No emesis. Objective - Vital Signs Vital signs: Vital Signs Temp 97.6 F 11/28/18 12:00 Pulse 78 11/28/18 12:00 Resp 16 11/28/18 12:00 BP 113/62 11/28/18 12:00 Pulse Ox 99 11/28/18 12:00 Intake & Output 11/27/18 11/28/18 11/28/18 18:59 06:59 18:59 Intake Total 500 450 Output Total 200 Balance 300 450 Intake: IV 500 Lactated Ringers 1,000 ml 500 @ 100 mls/hr IV .Q10H JOLIE Rx#:[id number] Oral 450 Output: Urine 200 Other: Voiding Method Indwelling Catheter Bedside Commode # Voids 1 1 # Bowel Movements 0 - Exam General appearance: The patient is alert, intubated in no acute distress. HET: Head is normocephalic and atraumatic. Pupils are equal and reactive. Oropharynx is clear without lesions. NG tube with minimal output. Neck: Supple without lymphadenopathy. Trachea midline. Heart: S1 S2. Regular rate and rhythm. Lungs: No crackles or wheezes are heard. Abdomen: Soft, nontender, nondistended with bowel sounds. No peritoneal signs. No palpable organomegaly or masses. Extremities: Normal skin color and turgor. No cyanosis, rash, ulceration, clubbing, or edema. Radial and pedal pulses are 2/4 bilaterally. Neurological: No focal deficits. Strength and sensation are grossly intact. - Labs CBC & Chem 7: 11/28/18 09:54 11/27/18 04:45 Labs: Abnormal Lab Results - Last 24 Hours (Table) 11/28/18 Range/Units 09:54 RBC 4.19 L (4.30-5.90) m/uL Hgb 12.0 L (13.0-17.5) gm/dL Hct 38.8 L (39.0-53.0) % MCHC 30.9 L (31.0-37.0) g/dL Plt Count 119 L (150-450) k/uL Lymphocytes # 0.7 L (1.0-4.8) k/uL Assessment and Plan (1) Dysphagia Narrative/Plan: Status post EGD 2 evidence of copious amounts of food retention throughout the entire esophagus raising this clinical suspicion of possible achalasia, food debris mobilized out tolerating clear liquid diet. Current Visit: Yes Status: Acute Code(s): R13.10 - DYSPHAGIA, UNSPECIFIED SNOMED Code(s): 10906532 Plan: 1. Agreeable for discharge. Recommend full liquid consistency diet avoid breads and thick meats with protein shakes 3 times daily. Follow-up in office in 3-4 weeks for reevaluation and discussion of possible outpatient manometry. Patient states he is not interested in pursuing manometry in the next 1-2 weeks he is going to rehabilitation unit near his home. Assessment and plan a care discussed with Dr. Herrmann
--- NOTE | 2018-11-28 16:25 | P.PN ---
Subjective This very pleasant 88-year-old gentleman who was transferred from [facility] with presyncope. Patient the time examination was having vomiting. He said that he initially went in to [facility] for the syncope. He said that he was sitting and trying to put eyedrops in his eyes when he leaned back he suddenly felt dizzy as he was going to pass out. He said that he was not able to get up and was feeling extremely weak. When he tried to get up he was feeling dizzy again. He just went to [facility] for further evaluation and management. Patient did not complain of any chest pain or racing heart, no cough no shortness of breath he does not complain of any abdominal pain, no diarrhea constipation. Patient says that he's been having constant episodes at home where he cannot swallow certain kinds of foods and then he chokes. He says that he sometimes feels that the food is stuck in his throat. He has not had any EGDs or any colonoscopies or any imaging for this purpose. He says that he's feeling weak for some time now. [facility] he had a computed tomography scan done which was negative. Apparently over there he was thought to have A. fib with RVR and so he was started on heparin and transferred over here. 11/26/2018 Pt was seen by Gi yesterday. Egd showed esophagal foreign body with foof coated throughout esophagousand diffusely dialted esophagus and hypertrophied contracted LES suspisoius for aclasia. S/P procedure pt was transferred to icu intubatedand with ng tube hooked to low intermittent suction. Pt was eventally extubated this afternoon. He is ronchrous and coughing still. no chest pain, no racing heart. No ABD apin, no vomiting. 11/27/2018 Patient had an EGD done this morning which showed no more retained food in the esophagus Patient still having raspy breathing probably because of unable to clear secretions Is complaining of no chest pain racing heart Objective - Vital Signs Vital signs: Vital Signs Temp 97.6 F 11/28/18 12:00 Pulse 72 11/28/18 15:30 Resp 16 11/28/18 16:00 BP 113/62 11/28/18 12:00 Pulse Ox 99 11/28/18 12:00 Intake & Output 11/27/18 11/28/18 11/28/18 18:59 06:59 18:59 Intake Total 500 450 Output Total 200 Balance 300 450 Intake: IV 500 Lactated Ringers 1,000 ml 500 @ 100 mls/hr IV .Q10H JOLIE Rx#:[id number] Oral 450 Output: Urine 200 Other: Voiding Method Indwelling Catheter Bedside Commode # Voids 1 3 # Bowel Movements 0 3 - Exam On exam, alert and oriented x3. HEENT: Conjunctivae normal. eyes normal. NECK: No JVD. No thyroid enlargement. No LNs CARDIOVASCULAR: S1-S2 positive RESPIRATION: Patient is having some coarse breath sounds ABDOMEN: Soft, nontender . No guarding. no masses palpable. No ascites, No hepatosplenomegaly.Bowel sounds heard. LEGS: No edema. no swelling NERVOUS SYSTEM: Cranial N 2-12 grossly normal. Moves all 4 limbs. No focal deficits. No sensory deficit. No signs of cerebellar dysfucntion. Skin: no ulcer no rash - Labs CBC & Chem 7: 11/28/18 09:54 11/27/18 04:45 Labs: Abnormal Lab Results - Last 24 Hours (Table) 11/28/18 Range/Units 09:54 RBC 4.19 L (4.30-5.90) m/uL Hgb 12.0 L (13.0-17.5) gm/dL Hct 38.8 L (39.0-53.0) % MCHC 30.9 L (31.0-37.0) g/dL Plt Count 119 L (150-450) k/uL Lymphocytes # 0.7 L (1.0-4.8) k/uL Assessment and Plan Assessment: - Presyncope need to rule out the cause - A. fib ruled out patient having sinus rhythm with frequent PACs - Constant choking and inability to swallow certain solid food. Need to rule out obstruction in the esophagus - Hypertension - Hyperlipidemia - History of CAD Plan 11/25/2018 - Patient is admitted to selective floor with telemetry - Appreciated cardiology recommendations. He was started on lisinopril which will continue - We'll consult neurology as the patient says that he still feeling dizzy when he gets up and walks. He computed tomography scan done at the other facility was negative. We'll order for ultrasound carotids and echocardiogram - We'll order for PT OT consult- - Also will consult gastroenterology to evaluate for possible esophageal obstruction - We'll resume the patient's home medications - DVT and GI prophylaxis - We'll order for lab work in the morning - Expected length of stay is more than 2 midnights - Patient is full code 11/26/2018 - Will have a repeat EGD tomorrow again to remove the remaining food impaction - High risk of aspiration. Will keep his bed inclined - Continue rest of the medical care - Breathing treatments PRN - wILL F/U 11/27/2018 - Patient will probably be transferred to regular medical surgical floor - He will have a speech and swallow eval - We will continue rest of the medical care - He'll probably need rehab at the time of discharge
[2018-11-28] MEDS ORDERED: IPRATROPIUM-ALBUTEROL 3 ML NEB INHALATION PRN (19:15)
--- NOTE | 2018-11-28 20:11 | P.PN ---
Subjective This very pleasant 88-year-old gentleman who was transferred from [facility] with presyncope. Patient the time examination was having vomiting. He said that he initially went in to [facility] for the syncope. He said that he was sitting and trying to put eyedrops in his eyes when he leaned back he suddenly felt dizzy as he was going to pass out. He said that he was not able to get up and was feeling extremely weak. When he tried to get up he was feeling dizzy again. He just went to [facility] for further evaluation and management. Patient did not complain of any chest pain or racing heart, no cough no shortness of breath he does not complain of any abdominal pain, no diarrhea constipation. Patient says that he's been having constant episodes at home where he cannot swallow certain kinds of foods and then he chokes. He says that he sometimes feels that the food is stuck in his throat. He has not had any EGDs or any colonoscopies or any imaging for this purpose. He says that he's feeling weak for some time now. [facility] he had a computed tomography scan done which was negative. Apparently over there he was thought to have A. fib with RVR and so he was started on heparin and transferred over here. 11/26/2018 Pt was seen by Gi yesterday. Egd showed esophagal foreign body with foof coated throughout esophagousand diffusely dialted esophagus and hypertrophied contracted LES suspisoius for aclasia. S/P procedure pt was transferred to icu intubatedand with ng tube hooked to low intermittent suction. Pt was eventally extubated this afternoon. He is ronchrous and coughing still. no chest pain, no racing heart. No ABD apin, no vomiting. 11/27/2018 Patient had an EGD done this morning which showed no more retained food in the esophagus Patient still having raspy breathing probably because of unable to clear secretions Is complaining of no chest pain racing heart 11/28/2018 Pt transferred out of the ICU He is tolerating liquid diet Cough is better No sob Objective - Vital Signs Vital signs: Vital Signs Temp 97.6 F 11/28/18 12:00 Pulse 78 11/28/18 19:23 Resp 16 11/28/18 16:00 BP 113/62 11/28/18 12:00 Pulse Ox 99 11/28/18 12:00 Intake & Output 11/28/18 11/28/18 11/29/18 06:59 18:59 06:59 Intake Total 450 Balance 450 Intake: Oral 450 Other: Voiding Method Bedside Commode # Voids 1 3 # Bowel Movements 0 3 - Exam On exam, alert and oriented x3. HEENT: Conjunctivae normal. eyes normal. NECK: No JVD. No thyroid enlargement. No LNs CARDIOVASCULAR: S1-S2 positive RESPIRATION: Patient is having some coarse breath sounds ABDOMEN: Soft, nontender . No guarding. no masses palpable. No ascites, No hepatosplenomegaly.Bowel sounds heard. LEGS: No edema. no swelling NERVOUS SYSTEM: Cranial N 2-12 grossly normal. Moves all 4 limbs. No focal deficits. No sensory deficit. No signs of cerebellar dysfucntion. Skin: no ulcer no rash - Labs CBC & Chem 7: 11/28/18 09:54 11/27/18 04:45 Labs: Abnormal Lab Results - Last 24 Hours (Table) 11/28/18 Range/Units 09:54 RBC 4.19 L (4.30-5.90) m/uL Hgb 12.0 L (13.0-17.5) gm/dL Hct 38.8 L (39.0-53.0) % MCHC 30.9 L (31.0-37.0) g/dL Plt Count 119 L (150-450) k/uL Lymphocytes # 0.7 L (1.0-4.8) k/uL Assessment and Plan Assessment: - Presyncope need to rule out the cause - A. fib ruled out patient having sinus rhythm with frequent PACs - Constant choking and inability to swallow certain solid food. Need to rule out obstruction in the esophagus - Hypertension - Hyperlipidemia - History of CAD Plan 11/25/2018 - Patient is admitted to selective floor with telemetry - Appreciated cardiology recommendations. He was started on lisinopril which will continue - We'll consult neurology as the patient says that he still feeling dizzy when he gets up and walks. He computed tomography scan done at the other facility was negative. We'll order for ultrasound carotids and echocardiogram - We'll order for PT OT consult- - Also will consult gastroenterology to evaluate for possible esophageal obstruction - We'll resume the patient's home medications - DVT and GI prophylaxis - We'll order for lab work in the morning - Expected length of stay is more than 2 midnights - Patient is full code 11/26/2018 - Will have a repeat EGD tomorrow again to remove the remaining food impaction - High risk of aspiration. Will keep his bed inclined - Continue rest of the medical care - Breathing treatments PRN - wILL F/U 11/27/2018 - Patient will probably be transferred to regular medical surgical floor - He will have a speech and swallow eval - We will continue rest of the medical care - He'll probably need rehab at the time of discharge 11/28/2018 - Will need to get pt/ot. Patient might benefit from rehab - Continue rest of the meds - Full liquid consistency diet avoid breads and thick meats with protein shakes 3 times daily. - Awaiting on placement - Will f/u
[2018-11-28] MEDS: LATANOPROST 0.005% OPHTH DROPS 2.5 ML BTL BOTH EYES SCH (20:21)
[2018-11-29] MEDS: IPRATROPIUM-ALBUTEROL 3 ML NEB INHALATION SCH ×4 (07:02→18:52)
[2018-11-29] MEDS: BRIMONIDINE TARTRATE 0.2% DROPS 5 ML BTL BOTH EYES SCH ×2 (07:43→21:51)
[2018-11-29] MEDS: LISINOPRIL 20 MG TAB PO SCH (07:44)
[2018-11-29] MEDS: PANTOPRAZOLE 40 MG/10 ML VIAL IV SCH (07:44)
[2018-11-29] MEDS: DORZOLAMIDE HCL 2% DROPS 10 ML BTL BOTH EYES SCH ×2 (07:44→21:51)
[2018-11-29] MEDS: TIMOLOL 0.5% OPHTH DROPS 5 ML BTL BOTH EYES SCH ×2 (07:44→21:51)
[2018-11-29 09:03] LABS: Basophils % (A) 0 %; Eosinophils # (A) 0.2 k/uL (0-0.7); Eosinophils % (A) 3 %; HCT 40.8 % (39.0-53.0); HGB 11.9 gm/dL (13.0-17.5); Hypochromasia Marked; Lymphocytes % (A) 18 %; MCH 26.9 pg (25.0-35.0); MCHC 29.1 g/dL (31.0-37.0); MCV 92.5 fL (80.0-100.0); Mean Platelet Volume 9.3; Monocytes # (A) 0.4 k/uL (0-1.0); Monocytes % (A) 7 %; Neutrophils # (A) 4.1 k/uL (1.3-7.7); Neutrophils % (A) 71 %; Platelet Count 128 k/uL (150-450); RBC 4.41 m/uL (4.30-5.90); RDW 14.3 % (11.5-15.5); WBC 5.8 k/uL (3.8-10.6)
--- NOTE | 2018-11-29 11:47 | P.PN ---
Subjective From the medical record This very pleasant 88-year-old gentleman who was transferred from [facility] with presyncope. Patient the time examination was having vomiting. He said that he initially went in to [facility] for the syncope. He said that he was sitting and trying to put eyedrops in his eyes when he leaned back he suddenly felt dizzy as he was going to pass out. He said that he was not able to get up and was feeling extremely weak. When he tried to get up he was feeling dizzy again. He just went to [facility] for further evaluation and management. Patient did not complain of any chest pain or racing heart, no cough no shortness of breath he does not complain of any abdominal pain, no diarrhea constipation. Patient says that he's been having constant episodes at home where he cannot swallow certain kinds of foods and then he chokes. He says that he sometimes feels that the food is stuck in his throat. He has not had any EGDs or any colonoscopies or any imaging for this purpose. He says that he's feeling weak for some time now. [facility] he had a computed tomography scan done which was negative. Apparently over there he was thought to have A. fib with RVR and so he was started on heparin and transferred over here. 11/26/2018 Pt was seen by Gi yesterday. Egd showed esophagal foreign body with foof coated throughout esophagousand diffusely dialted esophagus and hypertrophied contr acted LES suspisoius for aclasia. S/P procedure pt was transferred to icu intubatedand with ng tube hooked to low intermittent suction. Pt was eventally extubated this afternoon. He is ronchrous and coughing still. no chest pain, no racing heart. No ABD apin, no vomiting. 11/27/2018 Patient had an EGD done this morning which showed no more retained food in the esophagus Patient still having raspy breathing probably because of unable to clear secretions Is complaining of no chest pain racing heart 11/28/2018 Pt transferred out of the ICU He is tolerating liquid diet Cough is better No sob Subjective: This is first time taking care of the patient 11/29/2018 This is a pleasant 88 years old male who presents with possible achalasia with impaction in his esophagus, status post EGD by GI team. Today Patient was sitting on the chair, feeling somewhat dizzy, also has some coughing without p hlegm. He denies chest pain or dyspnea today. No another new complaints. Patient feels a little better. He has his breakfast today and he tolerated his mean well including oatmeal. Vitas looks stable. He is saturating 95% on 4 L oxygen. Labs reviewed, no leukocytosis, hemoglobin 11.9. Platelet count is improved to 128 k. His been followed by several consultants including cardiology, pulmonary and GI team. Echo showing moderate LVH with impaired relaxation. Objective - Vital Signs Vital signs: Vital Signs Temp 97.6 F 11/29/18 05:59 Pulse 77 11/29/18 07:12 Resp 18 11/29/18 05:59 BP 144/81 11/29/18 05:59 Pulse Ox 95 11/29/18 05:59 Intake & Output 11/28/18 11/29/18 11/29/18 18:59 06:59 18:59 Other: Voiding Method Bedside Commode Bedside Commode Bedside Commode # Voids 3 1 # Bowel Movements 3 2 - Exam -GENERAL: The patient is alert and oriented x3, not in any acute distress. Generally weak HEENT: Pupils are round and equally reacting to light. EOMI. No scleral icterus. No conjunctival pallor. Normocephalic, atraumatic. No pharyngeal erythema. No thyromegaly. CARDIOVASCULAR: S1 and S2 present. No murmurs, rubs, or gallops. PULMONARY: Chest is clear to auscultation, no wheezing or crackles. ABDOMEN: Soft, nontender, nondistended, normoactive bowel sounds. No palpable organomegaly. MUSCULOSKELETAL: No joint swelling or deformity. EXTREMITIES: No cyanosis, clubbing, or pedal edema. NEUROLOGICAL: Gross neurological examination did not reveal any focal deficits. SKIN: No rashes. - Labs CBC & Chem 7: 11/29/18 08:19 11/27/18 04:45 Labs: Abnormal Lab Results - Last 24 Hours (Table) 11/29/18 Range/Units 08:19 Hgb 11.9 L (13.0-17.5) gm/dL MCHC 29.1 L (31.0-37.0) g/dL Plt Count 128 L (150-450) k/uL Assessment and Plan Assessment: Food impaction, mostly secondary to achalasia Dysphagia secondary to above Hypertension Hyperlipidemia History of coronary artery disease, status post stent placement Plan: This is a pleasant 88 years old male who presents with food impaction and dysphagia. Patient is status post EGD. And patient is been followed by GI team as well as cartilage and pulmonary. We'll follow the recommendation. He continue with liquid diet. Patient might need ECF upon discharge for his generalized weakness. Physical therapy already evaluated patient, sort line worker is consulted.Labs and medication were reviewed.. Continue same treatment. Continue with symptomatic treatment. Resume home medication. Monitor lytes and vitals. DVT and GI prophylaxis. Further recommendations of the clinical course of the patient DVT prophylaxis: Subcutaneous heparin GI Prophylaxis: Pepcid Prognosis is guarded
[2018-11-29] MEDS: ENOXAPARIN 40 MG/0.4 ML SYRINGE SQ SCH (12:14)
[2018-11-29] MEDS ORDERED: FAMOTIDINE 20 MG TAB PO SCH (21:00)
[2018-11-29] MEDS: LATANOPROST 0.005% OPHTH DROPS 2.5 ML BTL BOTH EYES SCH (21:51)
[2018-11-30] MEDS: DORZOLAMIDE HCL 2% DROPS 10 ML BTL BOTH EYES SCH ×2 (07:20→20:47)
[2018-11-30] MEDS: ENOXAPARIN 40 MG/0.4 ML SYRINGE SQ SCH (07:20)
[2018-11-30] MEDS: LISINOPRIL 20 MG TAB PO SCH (07:20)
[2018-11-30] MEDS: PANTOPRAZOLE 40 MG TABLET PO SCH (07:20)
[2018-11-30] MEDS: TIMOLOL 0.5% OPHTH DROPS 5 ML BTL BOTH EYES SCH ×2 (07:21→20:47)
[2018-11-30] MEDS: BRIMONIDINE TARTRATE 0.2% DROPS 5 ML BTL BOTH EYES SCH ×2 (07:21→20:47)
[2018-11-30] MEDS: IPRATROPIUM-ALBUTEROL 3 ML NEB INHALATION SCH ×4 (08:13→20:34)
[2018-11-30 08:25] LABS: Basophils % (A) 0 %; Eosinophils # (A) 0.3 k/uL (0-0.7); Eosinophils % (A) 5 %; HCT 41.6 % (39.0-53.0); HGB 12.6 gm/dL (13.0-17.5); Hypochromasia Moderate; Lymphocytes # (A) 1.2 k/uL (1.0-4.8); Lymphocytes % (A) 18 %; MCH 27.7 pg (25.0-35.0); MCHC 30.2 g/dL (31.0-37.0); Mean Platelet Volume 8.5; Monocytes # (A) 0.5 k/uL (0-1.0); Monocytes % (A) 8 %; Neutrophils # (A) 4.3 k/uL (1.3-7.7); Neutrophils % (A) 66 %; Platelet Count 137 k/uL (150-450); RBC 4.53 m/uL (4.30-5.90); WBC 6.5 k/uL (3.8-10.6)
--- NOTE | 2018-11-30 08:44 | P.PN ---
Subjective From the medical record This very pleasant 88-year-old gentleman who was transferred from [facility] with presyncope. Patient the time examination was having vomiting. He said that he initially went in to [facility] for the syncope. He said that he was sitting and trying to put eyedrops in his eyes when he leaned back he suddenly felt dizzy as he was going to pass out. He said that he was not able to get up and was feeling extremely weak. When he tried to get up he was feeling dizzy again. He just went to [facility] for further evaluation and management. Patient did not complain of any chest pain or racing heart, no cough no shortness of breath he does not complain of any abdominal pain, no diarrhea constipation. Patient says that he's been having constant episodes at home where he cannot swallow certain kinds of foods and then he chokes. He says that he sometimes feels that the food is stuck in his throat. He has not had any EGDs or any colonoscopies or any imaging for this purpose. He says that he's feeling weak for some time now. [facility] he had a computed tomography scan done which was negative. Apparently over there he was thought to have A. fib with RVR and so he was started on heparin and transferred over here. 11/26/2018 Pt was seen by Gi yesterday. Egd showed esophagal foreign body with foof coated throughout esophagousand diffusely dialted esophagus and hypertrophied contr acted LES suspisoius for aclasia. S/P procedure pt was transferred to icu intubatedand with ng tube hooked to low intermittent suction. Pt was eventally extubated this afternoon. He is ronchrous and coughing still. no chest pain, no racing heart. No ABD apin, no vomiting. 11/27/2018 Patient had an EGD done this morning which showed no more retained food in the esophagus Patient still having raspy breathing probably because of unable to clear secretions Is complaining of no chest pain racing heart 11/28/2018 Pt transferred out of the ICU He is tolerating liquid diet Cough is better No sob Subjective: This is first time taking care of the patient 11/29/2018 This is a pleasant 88 years old male who presents with possible achalasia with impaction in his esophagus, status post EGD by GI team. Today Patient was sitting on the chair, feeling somewhat dizzy, also has some coughing without p hlegm. He denies chest pain or dyspnea today. No another new complaints. Patient feels a little better. He has his breakfast today and he tolerated his mean well including oatmeal. Vitas looks stable. He is saturating 95% on 4 L oxygen. Labs reviewed, no leukocytosis, hemoglobin 11.9. Platelet count is improved to 128 k. His been followed by several consultants including cardiology, pulmonary and GI team. Echo showing moderate LVH with impaired relaxation. 11/30/2018 Patient still feeling dizzy when he stands up, however is sitting in chair comfortable with no dizziness. No syncope. No chest pain or dyspnea. He has occasional dry cough. He is tolerating diet well and is most of his male. Patient has some urine hesitancy, postvoid residual residual showing about 150 mL of urine. Flomax is been added. Still on 4 L oxygen and saturating 97%, we'll try to wean down his oxygen level. There is a Vitas looks stable. Platelet count improvement 137. Objective - Vital Signs Vital signs: Vital Signs Temp 98.1 F 11/30/18 05:25 Pulse 83 11/30/18 08:28 Resp 18 11/30/18 05:25 BP 160/77 11/30/18 05:25 Pulse Ox 97 11/30/18 08:15 Intake & Output 11/29/18 11/30/18 11/30/18 18:59 06:59 18:59 Intake Total 200 Output Total 600 Balance -600 200 Intake: Oral 200 Output: Urine 300 Post Void Residual 300 Other: Voiding Method Bedside Commode Bedside Commode # Voids 1 0 # Bowel Movements 1 - Exam -GENERAL: The patient is alert and oriented x3, not in any acute distress. Generally weak HEENT: Pupils are round and equally reacting to light. EOMI. No scleral icterus. No conjunctival pallor. Normocephalic, atraumatic. No pharyngeal erythema. No thyromegaly. CARDIOVASCULAR: S1 and S2 present. No murmurs, rubs, or gallops. PULMONARY: Chest is clear to auscultation, no wheezing or crackles. ABDOMEN: Soft, nontender, nondistended, normoactive bowel sounds. No palpable organomegaly. MUSCULOSKELETAL: No joint swelling or deformity. EXTREMITIES: No cyanosis, clubbing, or pedal edema. NEUROLOGICAL: Gross neurological examination did not reveal any focal deficits. SKIN: No rashes. - Labs CBC & Chem 7: 11/30/18 07:49 11/27/18 04:45 Labs: Abnormal Lab Results - Last 24 Hours (Table) 11/29/18 11/30/18 Range/Units 08:19 07:49 Hgb 11.9 L 12.6 L (13.0-17.5) gm/dL MCHC 29.1 L 30.2 L (31.0-37.0) g/dL Plt Count 128 L 137 L (150-450) k/uL Assessment and Plan Assessment: Food impaction, mostly secondary to achalasia Dysphagia secondary to above Hypertension Hyperlipidemia History of coronary artery disease, status post stent placement Plan: This is a pleasant 88 years old male who presents with food impaction and dysphagia. Patient is status post EGD. And patient is been followed by GI team as well as cartilage and pulmonary. We'll follow the recommendation. He continue with liquid diet. Patient might need ECF upon discharge for his generalized weakness. Physical therapy already evaluated patient, [employer] school social [employer] teacher is consulted.Labs and medication were reviewed.. Continue same treatment. Continue with symptomatic treatment. Resume home medication. Monitor lytes and vitals. DVT and GI prophylaxis. Further recommendations of the clinical course of the patient DVT prophylaxis: Subcutaneous heparin GI Prophylaxis: Pepcid Prognosis is guarded
[2018-11-30] MEDS: TAMSULOSIN 0.4 MG CAP.ER.24H PO SCH (09:01)
[2018-11-30] MEDS: LATANOPROST 0.005% OPHTH DROPS 2.5 ML BTL BOTH EYES SCH (20:47)
[2018-12-01] MEDS: ENOXAPARIN 40 MG/0.4 ML SYRINGE SQ SCH (06:54)
[2018-12-01] MEDS: LISINOPRIL 20 MG TAB PO SCH (06:54)
[2018-12-01] MEDS: PANTOPRAZOLE 40 MG TABLET PO SCH (06:54)
[2018-12-01] MEDS: TAMSULOSIN 0.4 MG CAP.ER.24H PO SCH (06:54)
[2018-12-01] MEDS: BRIMONIDINE TARTRATE 0.2% DROPS 5 ML BTL BOTH EYES SCH (06:55)
[2018-12-01] MEDS: DORZOLAMIDE HCL 2% DROPS 10 ML BTL BOTH EYES SCH (06:55)
[2018-12-01] MEDS: TIMOLOL 0.5% OPHTH DROPS 5 ML BTL BOTH EYES SCH (06:55)
[2018-12-01] MEDS: IPRATROPIUM-ALBUTEROL 3 ML NEB INHALATION SCH ×3 (07:07→16:12)
[2018-12-01 14:22] VITALS: BP 152/71; RESP 22; TEMP 97.9
[2018-12-01 15:13] VITALS: BMI 29.0
--- NOTE | 2018-12-01 15:48 | P.DS ---
Providers Date of admission: 11/25/18 19:14 Attending physician: Kannan Delgadillo MD Consults: 11/24/18 20:57 Consult Physician Routine Consulting Provider: Shoaib Walden Consult Reason/Comments: new onset afib Do you want consulting provider notified?: Yes, Notify in am 11/25/18 10:48 Consult Physician Routine Consulting Provider: Loida Orellana Consult Reason/Comments: presyncope Do you want consulting provider notified?: Yes 11/25/18 19:08 Consult Physician Routine Consulting Provider: Nahum Brandt Consult Reason/Comments: Intubated status post EGD, suspect achalasia Do you want consulting provider notified?: Yes Primary care physician: Stated None Hospital Course: Diagnoses: Food impaction, mostly secondary to achalasia Burdick's esophagus Dysphagia secondary to above Frequent atrial premature complexes on EKG Chronic hypoxic respiratory failure Hypertension Hyperlipidemia History of coronary artery disease, status post stent placement in 2003 Hospital course: This very pleasant 88-year-old gentleman who was transferred from [facility] with presyncope. Patient the time examination was having vomiting. He said that he initially went in to [facility] for the syncope. and he was feeling extremely weak. Patient says that he's been having constant episodes at home where he cannot swallow certain kinds of foods and then he chokes. He says that he sometimes feels that the food is stuck in his throat. Patient has been evaluated by GI team.EGD showed esophageal foreign body with food coated throughout esophagous and diffusely dilated esophagus and hypertrophied contracted LES suspicious for Achalasia. 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 Place area or malignancy identified. Patient will need GI follow-up in 3-4 weeks. EKG showing normal sinus rhythm at 82 with frequent premature atrial complexes.No significant ST-T changes. Echo showing moderate LVH with impaired relaxation. After the procedure patient recommended to have liquid diet with protein shakes 3 times per day. Patient tolerated diet well. His dizziness improved. No other new complaints. No chest pain or dyspnea. No nausea vomiting. No abdominal pain. No change in urine or bowel habits. No fever. He will be discharged on 2 L oxygen via [place]. Saturation 94%. Shunt was cleared by GI, cardiology team for discharge Problems and management plan were discussed with the patient and he verbalized understanding and acceptance Patient was found stable and can be discharged home however he needs follow-up as an outpatient. Patient was instructed to follow up with his PCP in one week and GI team in 3-4 week and he agrees. Gen: patient is a AAOx3, no distress CVS: S1-S2, RRR, no murmur Lungs: B/L CTA, no wheezing Abdomen: soft, no distention, no tenderness, positive bowel sounds Extremity: no leg edema or induration Time spent more than 35 minutes Plan - Discharge Summary Discharge Rx Participant: No New Discharge Prescriptions: No Action Latanoprost/Pf [Latanoprost 0.005% Eye Drop] 1 drop BOTH EYES HS Dorzolamide/Timolol/Pf [Dorzolamide-Timolol 2%-0.5%] 1 drop BOTH EYES BID Enalapril Maleate [Vasotec] 10 mg PO BID Brimonidine Tartrate [Alphagan P 0.1% Ophth Soln] 1 drops BOTH EYES BID Atorvastatin [Lipitor] 40 mg PO DAILY Aspirin EC [Ecotrin Low Dose] 81 mg PO DAILY Omeprazole 20 mg PO DAILY Discharge Medication List Aspirin EC [Ecotrin Low Dose] 81 mg PO DAILY 11/24/18 [History] Atorvastatin [Lipitor] 40 mg PO DAILY 11/24/18 [History] Brimonidine Tartrate [Alphagan P 0.1% Ophth Soln] 1 drops BOTH EYES BID 11/24/18 [History] Dorzolamide/Timolol/Pf [Dorzolamide-Timolol 2%-0.5%] 1 drop BOTH EYES BID 11/24/18 [History] Enalapril Maleate [Vasotec] 10 mg PO BID 11/24/18 [History] Latanoprost/Pf [Latanoprost 0.005% Eye Drop] 1 drop BOTH EYES HS 11/24/18 [History] Omeprazole 20 mg PO DAILY 11/24/18 [History] Follow up Appointment(s)/Referral(s): Silviano Gonzalez MD [STAFF PHYSICIAN] - 2 Weeks Fernando Herrmann MD [STAFF PHYSICIAN] - 4 Weeks Activity/Diet/Wound Care/Special Instructions: [facility]. Need to fax discharge med list to [facility] [phone]. Scripts at discharge to be filled at [facility].
[2018-12-01 16:23] VITALS: PULSE 96
== END 2018-12-01 17:18 | DRG 327 ==
LOC: INTOOBSV 18:30 → 3SCARD 18:30 → 2SICU 11-25 19:12 → OBSVTOIN 11-25 19:14 → 4MS4W 11-27 13:07
PROVIDERS: ADMIT Internal Medicine; ATTEND Internal Medicine
PROC: 0DJ08ZZ Inspection of Upper Intestinal Tract, Via Natural or Artificial Opening Endoscopic (ICD-10-PCS; 2018-11-25)
PROC: 5A1935Z Respiratory Ventilation, Less than 24 Consecutive Hours (ICD-10-PCS; 2018-11-25)
PROC: 0D9 Gastrointestinal System, Drainage (ICD-10-PCS; principal; 2018-11-25 08:30)
PROC: 0DB98ZX Excision of Duodenum, Via Natural or Artificial Opening Endoscopic, Diagnostic (ICD-10-PCS; 2018-11-27)
PROC: 0DB78ZX Excision of Stomach, Pylorus, Via Natural or Artificial Opening Endoscopic, Diagnostic (ICD-10-PCS; 2018-11-27)
PROC: 0DB28ZX Excision of Middle Esophagus, Via Natural or Artificial Opening Endoscopic, Diagnostic (ICD-10-PCS; 2018-11-27)
PROC: 0DB48ZX Excision of Esophagogastric Junction, Via Natural or Artificial Opening Endoscopic, Diagnostic (ICD-10-PCS; 2018-11-27)
DX: T18.128A Food in esophagus causing other injury, initial encounter (principal); I47.1 Supraventricular tachycardia; J96.11 Chronic respiratory failure with hypoxia; K22.0 Achalasia of cardia; R13.14 Dysphagia, pharyngoesophageal phase; I16.0 Hypertensive urgency; K22.2 Esophageal obstruction; K22.70 Barrett's esophagus without dysplasia; K22.8 Other specified diseases of esophagus; K29.70 Gastritis, unspecified, without bleeding; I49.1 Atrial premature depolarization; I10 Essential (primary) hypertension; E78.5 Hyperlipidemia, unspecified; I25.10 Atherosclerotic heart disease of native coronary artery without angina pectoris; Z79.82 Long term (current) use of aspirin; Z79.899 Other long term (current) drug therapy; Z95.5 Presence of coronary angioplasty implant and graft; Z87.891 Personal history of nicotine dependence; Z98.49 Cataract extraction status, unspecified eye; Z88.8 Allergy status to other drugs, medicaments and biological substances; Z85.46 Personal history of malignant neoplasm of prostate; K20.9 Esophagitis, unspecified
CPT/HCPCS: 36600; 43239; 43247; 71045; 74210; 80048; 80053; 82805; 83735; 84100; 84443; 85025; 85610; 85730; 87324; 88305; 93306; 93880; 94002; 94003; 94640